=== PATIENT | female | born 2000 | race African-American/Black ===

== ENCOUNTER 2022-08-08 16:03 | Emergency (ER) | payer OTHER, SELFPAY ==
--- OUTSIDE RECORDS SUMMARY | 2022-08-08 16:07 | XMS REPORT | Continuity of Care Document ---
:2000 Author Organization [facility] t Address [address] [phone] Care Team Providers Name Role Phone PCP, PATIENT DOES NOT HAVE A Primary Care Physician Unavailchava Hoff RN, Isha Chapman Attending Clinician Unavailable CLARISSA WISEMAN Attending Clinician Unavailable Only, Ang Db Test Attending Clinician Unavailable Clarissa Miles Attending Clinician Doctor Unassigned, Merigold Attending Clinician Unavailable Giorgi Alvarez Attending Clinician Hero Hodges Jr Attending Clinician Payers Payer Name Policy Type Policy Number Effective Date Expiration Date S ource Problems Condition Condition Condition Status Onset Resolution Last Treating Co mments Source Name Details Category Date Date Treatment Clinician Date DEQUERVAIN Diagnosis Active 2019-04-16 Memoria S DEQUERVAIN 04-09 15:57:00 l RELAEASE, S 00:00: Chris LT WRIST RELAEASE, 00 LT WRIST Active 04/09/2019 [facility] Chris UNK UNK Diagnosis Active 2019-04-12 Mem oria Active 04-09 05:44:00 l 04/09/2019 00:00: Medardo Arroyo Chris ACL ACL Diagnosis Active 2016-112018-05-05 Mem oria Active 18:20:00 l 11/10/2017 08:00: Medardo irene [facility] 00 [facility] KNEE KNEE Diagnosis Active 2016-112017-11-10 Mem oria ARTHROSCOP ARTHROSCOP 01-02 06:10:00 l Y/ACL Y/ACL 00:00: Chris RECONSTRUC RECONSTRUC 00 TION/ C B TION/ C B Active 11/01/2017 [facility] Chris M25.562 - M25.562 - Diagnosis Active 2016-112017-11-12 Memoria PAIN IN PAIN IN 12-12 15:46:00 l LEFT KNEE LEFT KNEE 00:01: Herm montrell Active 00 10/12/2017 JULIUS Perez, JULIUS [place] [facility] LEG MRI LEG Diagnosis Active 2016-112017-10-12 Memoria Active 12-12 18:47:00 l 10/12/2017 00:00: Medardo n [place] [id number] Chris Rupture of Rupture Problem Active 2019-10-16 Memoria anterior of 23:44:45 l cruciate anterior Medardo n ligament cruciate (disorder) ligament (disorder) Active Problem 10/16/2019 Madeleine Foster De De Problem Active Common Quervain's Quervain's Sp andrade tenosynovi tenosynovi - [facility] tis, left tis, left [facility] Other Other Problem Active Common chronic chronic Spirit pain pain - [facility] Pain in Pain in Problem Active Common left wrist left wrist Sp andrade - [facility] Injury of Injury of Problem Active Com mon left left Spirit radial radial - [facility] nerve at nerve at [facility] level, level, Medical subsequent subsequent Ce nter encounter encounter Cough Cough Problem Active Common [facility] - [facility] Slow Slow Problem Active Common transit transit Spirit constipati constipati - [facility] on on [facility] Arachnoid Arachnoid Problem Resolve 2005-0 2019-10-16 2019-10-16 Memoria cyst cyst d 11-13 23:44:45 23:44:45 l (disorder) (disorder) 00:00: He rmann Resolved 00 11/13/2004 Problem 10/16/2019 Madeleine Foster Allergies, Adverse Reactions, Alerts Allergy Allergy Status Severity Reaction(s) Onset Inactive Treating Comm ents Source Name Type Date Date Clinician NO KNOWN Drug Active Univers ALLERGIE Class [facility] Social History Social Habit Start Date Stop Date Quantity Comments Source Exposure to Not sure [facility] SARS-CoV-2 [facility] (event) Branch Tobacco use and 2017-10-02 2017-10-02 Smokeless tobacco [facility] exposure 00:00:00 00:00:00 non-user Sex Assigned At [birth year] [facility] 00:00:00 00:00:00 Smoking Status Start Date Stop Date Source Unknown if ever smoked [facility] Social History [facility] Medications Ordered Filled Start Stop Current Ordering Indication Dosage Frequency Signature Comments Components Source Medication Medication Date Date Medication? Clinician (SIG) Name Name No known No Univers medications 1-10 ity of 20:37: [address] No known No Univers medications 1-10 ity of 20:37: [address] Zofran No Notes: Memoria 5-31 (Same as: l 13:55: Zofran) MEDICATION WASTE Product Size: 4 mg Product Wasted: ___ mg Acetaminoph No Notes: Do M emoria en 325 MG / 5-31 not exceed l Oxycodone 13:55: 4gm/day of He acetaminop de 5 MG hen. (Same Oral Tablet as: [Percocet Percocet-5 5/325] /325) Morphine No 2 mg, 1 Memori a 5-31 mL, Route: l 13:55: IVP, Drug form: SOLN, Q3H, Dosing Weight 93.182, kg, PRN Pain Score 1-3, Start date: 04/12/19 8:55:00 CDT, Duration: 30 day, Stop date: 05/12/19 8:54:00 CDT ondansetron No Route: IV, Memoria (ANES) 5-31 Drug form: l 13:44: INJ, ONCE, Stop date: 04/12/19 8:44:00 CDT dexamethaso No Route: IV, Memoria ne (ANES) 5-31 Drug form: l 13:44: INJ, ONCE, Stop date: 04/12/19 8:44:00 CDT ceFAZolin No Route: IV, Me moria (ANES) 5-31 Drug form: l 13:39: INJ, ONCE, Stop date: 04/12/19 8:39:00 CDT lidocaine 2018-0 No Route: IV, Me moria (ANES) 04-12 Drug form: l 13:39: INJ, ONCE, Stop date: 04/12/19 8:39:00 CDT propofol 2018-0 No Route: IV, Mem oria (ANES) 04-12 Drug form: l 13:39: INJ, ONCE, Chris 00 Stop date: 04/12/19 8:39:00 CDT Lactated No Route: IV, Mem oria Ringers - Total l Injection 12:47: Volume: Columba nn IV (ANES) 00 1,000, 1000 mL Start date: 04/12/19 7:47:00 CDT, Stop date: 04/12/19 8:47:00 CDT Calcium 2018-0 No 1,000 mL, Memor ia Chloride 04-12 Rate: 25 l 0.0014 10:57: ml/hr, Chris MEQ/ML / 00 Infuse Potassium over: 40 Chloride hr, Route: 0.004 IV, Dosing MEQ/ML / Weight Sodium 93.182 kg, Chloride Total 0.103 Volume: MEQ/ML / 1,000, Sodium Start Lactate date: 0.028 04/12/19 MEQ/ML 5:57:00 Injectable CDT, Solution Duration: 30 day, Stop date: 05/12/19 5:56:00 CDT, 2.15, m2 Sodium 2018-0 No 1,000 mL, Memori a Chloride 04-12 Rate: 25 l 0.9% IV 10:57: ml/hr, [place] 1,000 mL 00 Infuse over: 40 hr, Route: IV, Dosing Weight 93.182 kg, Total Volume: 1,000, Start date: 04/12/19 5:57:00 CDT, Duration: 30 day, Stop date: 05/12/19 5:56:00 CDT, 2.15, m2 Prozac 2019-0 Yes 20 mg, PO, Memor ia 5-29 Daily l 19:55: Chris Oxycodone 2017-1 No 5 mg, 1 Memor ia Hydrochlori 2-29 tab, l de 5 MG 18:26: Route: PO, Herm montrell Oral Tablet 00 ONCE, Dosing Weight 90, kg, Start date: 11/10/17 12:26:00 DOCTOR OF AUDIOLOGY, Stop date: 11/10/17 12:26:00 DOCTOR OF AUDIOLOGY ketOROLAC 2016-11 No IV, ONCE Vipin minnie (ANES) l 17:16: [place] 00 Albuterol 2016-11 No 2.49 mg, Vipin minnie 0.83 MG/ML Route: l Inhalant 17:05: NEB, Chris Solution 00 Q20Min, Dosing Weight 90, kg, PRN Wheezing, Priority: STAT, Start date: 11/10/17 11:05:00 DOCTOR OF AUDIOLOGY, Duration: 30 day, Stop date: 12/10/17 11:04:00 DOCTOR OF AUDIOLOGY Morphine 2016-11 No 4 mg, Memoria Route: l 17:05: IVP, Chris 00 Q5Min, Dosing Weight 90, kg, PRN Pain Score 7-10, Start date: 11/10/17 11:05:00 DOCTOR OF AUDIOLOGY, Duration: 3 doses or times, Stop date: Limited # of times Naloxone 2016-11 No 0.4 mg, Memori a Route: l 17:05: IVP, Chris 00 Q2MIN, Dosing Weight 90, kg, PRN Narcotic Reversal, Start date: 11/10/17 11:05:00 DOCTOR OF AUDIOLOGY, Duration: 8 doses or times, Stop date: Limited # of times Flumazenil 2016-11 No 0.2 mg, Vipin minnie Route: l 17:05: IVP, PRN, Chris 00 Dosing Weight 90, kg, PRN Benzodiaze pine Reversal, Initial dose, Start date: 11/10/17 11:05:00 DOCTOR OF AUDIOLOGY, Duration: 30 day, Stop date: 12/10/17 11:04:00 DOCTOR OF AUDIOLOGY Ondansetron 2016-11 No 4 mg, Memor ia Route: l 17:05: IVP, ONCE, Chris 00 Dosing Weight 90, kg, PRN Nausea & Vomiting, Start date: 11/10/17 11:05:00 DOCTOR OF AUDIOLOGY Fentanyl 2016-11 No 25 Memoria microgram, l 17:05: Route: Chris 00 IVP, Q5Min, Dosing Weight 90, kg, PRN Pain Score 4-6, Priority: Routine, Start date: 11/10/17 11:05:00 DOCTOR OF AUDIOLOGY, Duration: 4 doses or times, Stop date: Limited # of times Ketorolac 2016-11 Yes 30 mg, Memori a Route: l 17:05: IVP, ONCE, [place] Dosing Weight 90, kg, Start date: 11/10/17 11:05:00 DOCTOR OF AUDIOLOGY, Stop date: 11/10/17 11:05:00 DOCTOR OF AUDIOLOGY Labetalol 2016-11 No 10 mg, Memori a Route: l 17:05: IVP, [place] 00 Q5Min, Dosing Weight 90, kg, PRN Elevated BP, Start date: 11/10/17 11:05:00 DOCTOR OF AUDIOLOGY, Duration: 5 doses or times, Stop date: Limited # of times Hydralazine 2016-11 No 10 mg, Vipin minnie Route: l 17:05: IVP, [place] 00 Q20Min, Dosing Weight 90, kg, PRN Elevated BP, Start date: 11/10/17 11:05:00 DOCTOR OF AUDIOLOGY, Duration: 2 doses or times, Stop date: Limited # of times Tylenol 2016-11 No Notes: Do Memor ia not exceed l 16:53: 4 gm/day. (Same as: Tylenol) Roxicodone 2016-11 No Notes: Memor ia (Same as: l 16:53: Roxicodone ) Zofran 2016-11 No Notes: Memoria (Same as: l 16:32: Zofran) MEDICATION WASTE Product Size: 4 mg Product Wasted: ___ mg Acetaminoph 2016-11 No 2 tab, Vipin minnie en 325 MG / Route: PO, l Oxycodone 16:32: Drug Form: He rmann Hydrochlori 00 TAB, de 5 MG Dosing Oral Tablet Weight 90, [Percocet kg, Q4H, 5/325] PRN Pain, Start date: 11/10/17 10:32:00 DOCTOR OF AUDIOLOGY, Duration: 30 day, Stop date: 12/10/17 10:31:00 DOCTOR OF AUDIOLOGY Morphine 2016-11 No Notes: Memoria (Same l 16:32: as:MORPhin e Sulfate) diphenhydrA 2016-11 No Route: IV, Memoria MINE (ANES) 2-29 Drug form: l 16:23: INJ, ONCE, Stop date: 11/10/17 10:23:00 DOCTOR OF AUDIOLOGY hydromorpho 2016-11 No Route: IV, Memoria ne (ANES) Drug form: l 15:53: INJ, ONCE, Stop date: 11/10/17 9:53:00 DOCTOR OF AUDIOLOGY lidocaine 2016-11 No Route: IV, Me moria (ANES) Drug form: l 15:43: INJ, ONCE, Stop date: 11/10/17 9:43:00 DOCTOR OF AUDIOLOGY ceFAZolin 2016-11 No Route: IV, Me moria (ANES) Drug form: l 15:38: INJ, ONCE, Stop date: 11/10/17 9:38:00 DOCTOR OF AUDIOLOGY ondansetron 2016-11 No Route: IV, Memoria (ANES) Drug form: l 15:38: INJ, ONCE, Stop date: 11/10/17 9:38:00 DOCTOR OF AUDIOLOGY dexamethaso 2016-11 No Route: IV, Memoria ne (ANES) Drug form: l 15:38: INJ, ONCE, Stop date: 11/10/17 9:38:00 DOCTOR OF AUDIOLOGY fentaNYL 2016-11 No Route: IV, Mem oria (ANES) Drug form: l 15:38: INJ, ONCE, Stop date: 11/10/17 9:38:00 DOCTOR OF AUDIOLOGY propofol 2016-11 No Route: IV, Mem oria (ANES) Drug form: l 15:38: INJ, ONCE, Stop date: 11/10/17 9:38:00 DOCTOR OF AUDIOLOGY famotidine 2016-11 No Route: IV, M emoria (ANES) Drug form: l 15:38: INJ, ONCE, Stop date: 11/10/17 9:38:00 DOCTOR OF AUDIOLOGY metoclopram 2016-11 No Route: IV, Memoria hola (ANES) Drug form: l 15:38: INJ, ONCE, Stop date: 11/10/17 9:38:00 DOCTOR OF AUDIOLOGY midazolam 2016-11 No Route: IV, Me moria (ANES) 2 Drug form: l 15:33: Mumtaz TURNERann 00 ONCE, Stop date: 11/10/17 9:33:00 DOCTOR OF AUDIOLOGY Lactated 2016-11 No Route: IV, Mem oria Ringers Total l Injection 14:43: Volume: Columba nn IV (ANES) 00 1,000, 1000 mL Start date: 11/10/17 8:43:00 DOCTOR OF AUDIOLOGY, Stop date: 11/10/17 9:43:00 DOCTOR OF AUDIOLOGY Calcium 2016-11 No 1,000 mL, Memor ia Chloride Rate: 25 l 0.0014 13:01: ml/hr, Chris MEQ/ML / 00 Infuse Potassium over: 40 Chloride hr, Route: 0.004 IV, Dosing MEQ/ML / Weight 90 Sodium kg, Total Chloride Volume: 0.103 1,000, MEQ/ML / Start Sodium date: Lactate 11/10/17 0.028 7:01:00 MEQ/ML DOCTOR OF AUDIOLOGY, Injectable Duration: Solution 30 day, Stop date: 12/10/17 7:00:00 DOCTOR OF AUDIOLOGY, 2.1, m2 No known 2016-11 No No known Metho di medications 1-[address] 13:11: [facility] l Azithromyci Azithromyci Yes Ran 2 tablets Common n n [place] on the [facility] first day, [facility] 4 days Center Symbicort Symbicort Yes Ran INHALE 2 Common [place] PUFFS BY Spirit MOUTH - [facility] TWICE A [facility] DAY [facility] Cefdinir Cefdinir Yes Ran TAKE 1 Com mon [place] CAPSULE BY [facility] M[facility]TH [facility] EVERY [facility]RS [facility] ProAir HFA ProAir HFA Yes Ran INHALE 1 Common [place] TO 2 Spirit PUFF(S) BY - [facility]TH [facility] EVERY 4 TO [facility] 6 HR Medical [facility] Center EZING AND BEFORE SPORTS- [place] FOR SCHOOL Mucinex DM Mucinex DM Yes Ran 1 tablet Common [place] as needed [facility] - [facility] Vital Signs Vital Name Observation Time Observation Value Comments Source Systolic (mm Hg) 2019-04-12 14:30:00 Vipin Perez Diastolic (mm Hg) 2019-04-12 14:30:00 Mem kerwin Perez Respitory Rate 2019-04-12 14:30:00 Memori al Chris Systolic (mm Hg) 2019-04-12 14:15:00 Vipin rial [place] Diastolic (mm Hg) 2019-04-12 14:15:00 Mem orial Chris Respitory Rate 2019-04-12 14:15:00 Memori al [place] Respitory Rate 2019-04-12 14:00:00 Memori al [place] Systolic (mm Hg) 2019-04-12 14:00:00 Vipin rial [place] Diastolic (mm Hg) 2019-04-12 14:00:00 Mem orial Chris BMI Calculated 2019-04-10 20:08:00 Memori al Chris Weight 2019-04-10 20:08:00 Memorial Chris Height 2019-04-10 20:08:00 175.26 cm Memorial Chris Respitory Rate 2017-11-10 18:45:00 Memori al Chrsi Systolic (mm Hg) 2017-11-10 18:45:00 Vipin rial [place] Diastolic (mm Hg) 2017-11-10 18:45:00 Mem orial Chris Systolic (mm Hg) 2017-11-10 18:30:00 Vipin rial [place] Diastolic (mm Hg) 2017-11-10 18:30:00 Mem orial Chris Respitory Rate 2017-11-10 18:30:00 Memori al Chris Systolic (mm Hg) 2017-11-10 18:10:00 Vipin rial [place] Diastolic (mm Hg) 2017-11-10 18:10:00 Mem orial [place] Respitory Rate 2017-11-10 18:10:00 Memori al [place] Weight 2017-11-08 17:00:00 Memorial Chris BMI Calculated 2017-11-08 17:00:00 Memori al [place] Height 2017-11-08 17:00:00 172.72 cm Memorial Chris Procedures Procedure Date / Time Performed Performing Clinician Sour e Cerebral Arachnoid cyst 2004-11-13 00:00:00 Vipin rial [place] Reconstruction of anterior Memor ial [place] cruciate ligament of knee joint Plan of Care Planned Activity Planned Date Details Comments Source Future Scheduled 2022-07-15 HEPATITIS B VACCINES Met [facility] Test 14:47:35 (1 of 3 - 3-dose series) [code = HEPATITIS B VACCINES (1 of 3 - 3-dose series)] Future Scheduled 2022-07-15 COVID-19 VACCINE (#1) [facility] Test 14:47:35 [code = COVID-19 VACCINE (#1)] Future Scheduled 2022-07-15 [facility] Test 14:47:35 Chlamydia trachomatis (procedure) [code = 239256411] Future Scheduled 2022-07-15 INFLUENZA VACCINE [facility] Test 14:47:35 [code = INFLUENZA VACCINE] Encounters Start End Encounter Admission Attending Care Care Encounter Source Date/Time Date/Time Type Type Clinicians Facility Department ID 2021-11-24 2021-11-24 Letter DONOVAN Hoff [id number] Univers 00:00:00 00:00:00 (Out) Isha JERRY [id number] it y of HOSPITAL 4.2.7.2.686 Job as [id number] [facility] [address] [place] 2021-11-22 2021-11-22 Outpatient R [facility] [id number] Univers 20:30:00 20:53:09 CLARISSA winter o f [facility] 2021-11-22 2021-11-22 Laboratory Only, Ang Db Test [facility] 1.2.8 [id number] [id number] Univers 20:30:00 20:45:00 Only Clarissa Wiseman [facility] [id number] ity of [place] 4.2.7.2.686 Job as DEVAUGHN?BLEA [id number] [address]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 2021-11-22 2021-11-22 Letter Doctor DONOVAN [id number] Univers 00:00:00 00:00:00 (Out) Unassigned, CLARITZA [id number] ity of [place] [id number] Job as [id number] [address] 2021-11-22 2021-11-22 Letter Doctor DONOVAN [id number] Univers 00:00:00 00:00:00 (Out) Unassigned, CLARITZA [id number] ity of [facility] [id number] Job as [id number] [address] 2019-10-14 2019-10-15 Outpt Diag nullFlavo [facility] [id number] Memoria 14:51:00 05:59:00 Services r [facility] 02 [facility] 2019-10-14 2019-10-14 Outpatient Elayne MHOIP MHOIP [id number] 08:51:00 23:59:00 Haider Celeste 2019-04-12 2019-04-12 Day nullFlavo [facility] [id number] Memoria 10:44:00 14:47:00 Surgery r [place] 01 [facility] 2019-04-12 2019-04-12 Outpatient Carroll, MHPL MHPL [id number] 05:44:00 09:47:00 Hero Martinez 2019-04-12 2019-04-12 Outpatient MHBL MHBL [id number] MHBL 05:44:00 05:44:00 2018-10-22 2018-10-22 Outpatient [facility] [id number] Common 14:00:00 14:00:00 [facility] 2018 2018 Out[facility] [id number] Common 15:00:00 15:00:00 t [facility] 2017-11-10 2017-11-10 Day nullFlavo [facility] [id number] Memoria 12:03:00 19:00:00 Surgery r Chris 00 [facility] 2017-11-10 2017-11-10 Outpatient Carroll, MHPL MHPL [id number] 06:03:00 13:00:00 Hero Martinez 2017-10-13 2017-10-13 Outpatient nullFlavo [facility] [id number] Memoria 00:40:00 05:59:00 r Chris 34 [facility] 2017-10-12 2017-10-12 Outpatient Carroll, MHPL MHPL [id number] 18:40:00 23:59:00 Hero Martinez Results Test Description Test Time Test Comments Results Result Comments Source URINE CHEM 2019-04-12 10:58:00 Test Item Value Reference Range Interpretation Comme nts U Preg (test code = U Preg) Negative (04/12/19 5:58 AM) Dina Hodges [id number] 13:02:00 Test Item Value Reference Range Interpretation Comments U Preg (test code = U Negative (11/10/17 7:02 Preg) AM) Dina Perez
[2022-08-08 16:53] LABS: Absolute Lymphocytes (CBC) 3.2 K/uL (0.7-4.9); Hematocrit 35.6 % (36.0-45.0); Lymphocytes % 41.7 % (15.3-44.8); MCV 78.1 fL (80-100); MPV 7.8 fL (7.6-11.3); RBC Red Blood Cell Count 4.56 M/uL (3.86-4.86)
[2022-08-08 17:00] LABS: Potassium 3.4 mmol/L (3.5-5.1)
[2022-08-08 17:07] LABS: Troponin High Sensitivity 3.5 pg/mL (<58.9)
[2022-08-08] MEDS ORDERED: MIDAZOLAM HCL 2 MG/2 ML INJ ONE (17:08)
--- NOTE | 2022-08-08 17:19 | RAD REPORT ---
EXAM DESCRIPTION: RAD - Chest Single View - 08/08/2022 4:59 pm CLINICAL HISTORY: syncope COMPARISON: Two view chest June 2017 TECHNIQUE: AP portable chest image was obtained 08/08/2022 4:59 pm . FINDINGS: No acute lung parenchymal process. Remnant CARPET INSPECTOR shunt tubing overlies the right-side of the chest. Overlying chest soft tissues increase lower lung field density. Acute lung parenchymal process is not seen. No failure or volume overload Heart and vasculature are normal. No measurable pleural effusion and no pneumothorax. No acute bony abnormality seen. No acute aortic findings suspected. IMPRESSION: No acute cardiopulmonary process.
--- NOTE | 2022-08-08 17:43 | EDPHYS ---
Physician Documentation [facility] Name: Felicita Tolentino Age: 21 yrs Sex: Female : 2000 Arrival Date: 08/08/2022 Time: 16:04 Bed 17 Private MD: ED Physician Maik Norton HPI: 08/08 22:36 This 21 yrs old Black Female presents to ER via Ambulatory with complaints of near ms3 Fainting. 22:36 21 yo female with no pmh presents for anxiety, shaking, and lighheadedness that began ms3 earlier today. Patient states she has not eaten a meal today and has had an energy drink, chocolate candy bar, and fuit. Patient denies pain at this time. Patient understands/ agrees with plan. . 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 - Social history:: Smoking status: Patient denies any tobacco usage or history of. ROS: 22:36 ENT: Negative for injury, pain, and discharge, Neck: Negative for injury, pain, and ms3 swelling, Cardiovascular: Negative for chest pain, and palpitations. Respiratory: Negative for shortness of breath, cough, wheezing, and pleuritic chest pain, Abdomen/GI: Negative for abdominal pain, nausea, vomiting, diarrhea, and constipation, MS/Extremity: Negative for injury and deformity, Skin: Negative for injury, rash, and discoloration. 22:36 Constitutional: Positive for fatigue. 22:36 All other systems are negative. Exam: 16:37 ECG was reviewed by the Attending Physician. ms3 22:36 Constitutional: This is a well developed, well nourished patient who is awake, alert, ms3 and in no acute distress. Head/Face: Normocephalic, atraumatic. Eyes: Pupils equal round and reactive to light, extra-ocular motions intact. Lids and lashes normal. Conjunctiva and sclera are non-icteric and not injected. Periorbital areas with no swelling, redness, or edema. Neck: Trachea midline, no cervical lymphadenopathy. Supple, full range of motion without nuchal rigidity, or vertebral point tenderness. No Meningismus. Chest/axilla: Normal chest wall appearance and motion. Nontender with no deformity. Cardiovascular: Regular rate and rhythm with a normal S1 and S2. No gallops, murmurs, or rubs. Normal PMI, no JVD. No pulse deficits. Respiratory: Lungs have equal breath sounds bilaterally, clear to auscultation and percussion. No rales, rhonchi or wheezes noted. No increased work of breathing, no retractions or nasal flaring. Abdomen/GI: Soft, non-tender, with normal bowel sounds. No distension or tympany. No guarding or rebound. No evidence of tenderness throughout. Skin: Warm, dry with normal turgor. Normal color with no rashes, no lesions, and no evidence of cellulitis. MS/ Extremity: Pulses equal, no cyanosis. Neurovascular intact. Full, normal range of motion. Vital Signs: 16:10 BP 147 / 71; Pulse 80; Resp 18; Temp 98.4; Pulse Ox 100% ; Weight 122.47 kg; Height 5 jl7 ft. 9 in. (175.26 cm); Pain 0/10; 17:54 BP 127 / 80; Pulse 85; Resp 16; Pulse Ox 100% on R/A; tp1 16:10 Body Mass Index 39.87 (122.47 kg, 175.26 cm) jl7 MDM: 16:44 Patient medically screened. ms3 22:36 Data reviewed: vital signs, nurses notes, lab test result(s), radiologic studies. ms3 Counseling: I had a detailed discussion with the patient and/or guardian regarding: the historical points, exam findings, and any diagnostic results supporting the discharge/admit diagnosis, lab results, radiology results, the need for outpatient follow up, to return to the emergency department if symptoms worsen or persist or if there are any questions or concerns that arise at home. Special discussion: I discussed with the patient/guardian in detail that at this point there is no indication for admission to the hospital. It is understood, however, that if the symptoms persist or worsen the patient needs to return immediately for re-evaluation. 08/08 16:17 Order name: Basic Metabolic Panel; Complete Time: 17:25 ms3 08/08 16:17 Order name: CBC with Diff; Complete Time: 17:25 ms3 08/08 16:17 Order name: Troponin HS; Complete Time: 17:25 ms3 08/08 16:17 Order name: XRAY Chest (1 view); Complete Time: 17:25 ms3 08/08 16:17 Order name: EKG; Complete Time: 16:18 ms3 08/08 16:17 Order name: Cardiac monitoring; Complete Time: 17:40 ms3 08/08 16:17 Order name: EKG - Nurse/Tech; Complete Time: 17:40 ms3 08/08 16:17 Order name: IV Saline Lock; Complete Time: 17:40 ms3 08/08 16:17 Order name: Labs collected and sent; Complete Time: 17:40 ms3 08/08 16:17 Order name: O2 Per Protocol; Complete Time: 16:20 ms3 08/08 16:17 Order name: O2 Sat Monitoring; Complete Time: 16:20 ms3 EC:37 Rate is 79 beats/min. Rhythm is regular. QRS [place] is Normal. [place] interval is normal. QRS ms3 interval is normal. Clinical impression: Normal ECG. Interpreted by me. Reviewed by me. Administered Medications: 17:16 Drug: Midazolam 1 mg Route: IVP; Site: right antecubital; db 18:00 Follow up: Response: Marked relief of symptoms tp1 Disposition Summary: 08/08/22 17:42 Discharge Ordered Location: Home ms3 Condition: Stable ms3 Diagnosis - Syncope Near ms3 - Anemia, unspecified ms3 - Hypokalemia ms3 Followup: ms3 - With: Peewee Yang DO - When: 2 - 3 days - Reason: Recheck today's complaints Discharge Instructions: - Discharge Summary Sheet ms3 - Anemia ms3 - Near-Syncope ms3 - Hypokalemia ms3 Forms: - Medication Reconciliation Form ms3 - Thank You Letter ms3 - Antibiotic Education ms3 - Prescription Opioid Use ms3 Signatures: Dispatcher [employer] Chelsy Silverman RN RN Xavi Garcia RN RN jl7 Maik Norton DO DO ms3 Keren Murray RN RN Corrie Blankenship RN tp1 Corrections: (The following items were deleted from the chart) 17:22 17:16 PMHx: AV shunt; db ph
--- NOTE | 2022-08-08 17:43 | ER ---
Nurse's Notes [facility] Name: Felicita Tolentino Age: 21 yrs Sex: Female : 2000 Arrival Date: 08/08/2022 Time: 16:04 Bed 17 Private MD: Diagnosis: Syncope Near;Anemia, unspecified;Hypokalemia Presentation: 08/08 16:10 Chief complaint: Patient states: Ate fruit at breakfast, drank a couple energy drinks, jl7 had some chocolate and passed out at work, reports feeling jittery. Coronavirus screen: Vaccine status: Patient reports receiving the 2nd dose of the covid vaccine. At this time, the client does not indicate any symptoms associated with coronavirus-19. Ebola Screen: No symptoms or risks identified at this time. Initial Sepsis Screen: Does the patient meet any 2 criteria? No. Patient's initial sepsis screen is negative. Does the patient have a suspected source of infection? No. Patient's initial sepsis screen is negative. Risk Assessment: Do you want to hurt yourself or someone else? Patient reports no desire to harm self or others. Onset of symptoms was August 08, 2022. 16:10 Method Of Arrival: Ambulatory jl7 16:10 Acuity: YASMINE 3 jl7 Triage Assessment: 16:12 General: Appears in no apparent distress. uncomfortable, Behavior is cooperative, jl7 appropriate for age, anxious. Pain: Denies pain. 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 - Social history:: Smoking status: Patient denies any tobacco usage or history of. Screenin:16 Abuse screen: Denies threats or abuse. Denies injuries from another. Nutritional tp1 screening: No deficits noted. Tuberculosis screening: No symptoms or risk factors identified. 17:59 Fall Risk No fall in past 12 months (0 pts). No secondary diagnosis (0 pts). IV access tp1 (20 points). Ambulatory Aid- None/Bed Rest/Nurse Assist (0 pts). Gait- Normal/Bed Rest/Wheelchair (0 pts) Mental Status- Oriented to own ability (0 pts). Assessment: 16:12 General: Appears in no apparent distress. comfortable, Behavior is calm, cooperative. tp1 General: slight hand tremors noted . Pain: Denies pain. Neuro: Level of Consciousness is awake, alert, obeys commands, Oriented to person, place, time, situation, Pupils are PERRLA, Reports "light is really bright". Cardiovascular: Reports lightheadedness, syncope, Denies chest pain, nausea, shortness of breath, Patient's skin is warm and dry. Respiratory: Airway is patent Respiratory effort is even, unlabored. GI: Abdomen is round non-distended. : No signs and/or symptoms were reported regarding the genitourinary system. EENT: No signs and/or symptoms were reported regarding the EENT system. Derm: Skin is pink, warm \\T\\ dry. Musculoskeletal: Circulation, motion, and sensation intact. 16:24 Reassessment: pt complaining of facial numbness and lightheaded, provider notified. tp1 16:42 Reassessment: appears to be anxious and crying. advised to take slow deep breaths. tp1 sister at bedside. Vital Signs: 16:10 BP 147 / 71; Pulse 80; Resp 18; Temp 98.4; Pulse Ox 100% ; Weight 122.47 kg; Height 5 jl7 ft. 9 in. (175.26 cm); Pain 0/10; 17:54 BP 127 / 80; Pulse 85; Resp 16; Pulse Ox 100% on R/A; tp1 16:10 Body Mass Index 39.87 (122.47 kg, 175.26 cm) jl7 ED Course: 16:04 Patient arrived in ED. rg4 16:08 Corrie Waller, RN is Primary Nurse. tp1 16:12 Triage completed. jl7 16:12 Arm band placed on right wrist. jl7 16:16 Maik Norton DO is Attending Physician. ms3 16:17 Patient has correct armband on for positive identification. Bed in low position. Call tp1 light in reach. Side rails up X2. Adult w/ patient. 16:28 Inserted saline lock: 20 gauge in right antecubital area, using aseptic technique. tp1 Blood collected. 16:37 EKG done, by ED staff. tp1 17:01 XRAY Chest (1 view) In Process Unspecified. EDMS 17:42 Peewee Yang DO is Referral Physician. ms3 17:59 No provider procedures requiring assistance completed. intact, bleeding controlled, No tp1 redness/swelling at site. Pressure dressing applied. Administered Medications: 17:16 Drug: Midazolam 1 mg Route: IVP; Site: right antecubital; db 18:00 Follow up: Response: Marked relief of symptoms tp1 Medication: 17:59 VIS not applicable for this client. tp1 Outcome: 17:42 Discharge ordered by MD. ms3 18:00 Discharged to home ambulatory. tp1 18:00 Condition: good 18:00 Discharge instructions given to patient, Instructed on discharge instructions, follow up and referral plans. Demonstrated understanding of instructions, follow-up care. 18:00 Patient left the ED. tp1 Signatures: Dispatcher [employer] EDMS Chelsy Leonardo RN RN Shalini Guzmán rg4 Xavi Núñez RN RN jl7 Maik Norton DO DO ms3 Corrie Waller, RN RN tp1 Keren Murray, ALEC RN db Corrections: (The following items were deleted from the chart) 17:22 17:16 PMHx: AV shunt; db ph
--- NOTE | 2022-08-09 17:28 | EKG ---
Test Date: 2022-08-08 Test Time: 16:37:32 Supervisor [employer]: TP MEASUREMENT RESULTS: Intervals: Rate: 79 MD: 158 QRSD: 86 QT: 374 QTc: 428 Elrod: P: 61 MD: 158 QRS: 64 T: 36 INTERPRETIVE STATEMENTS: Normal sinus rhythm Normal ECG Compared to ECG 07/11/2017 15:02:39 No significant changes Electronically Signed On 08-09-22 17:26:26 CDT by Perry Mejia
[2022-08-11 06:45] VITALS: BP 127/80; O2SAT 100
[2022-08-11 06:54] VITALS: TEMP 98.4
== END 2022-08-08 18:00 | disposition home or self-care (01) ==
LOC: ER 16:03
DX: R55 Syncope and collapse (principal); D64.9 Anemia, unspecified; E87.6 Hypokalemia; Z98.2 Presence of cerebrospinal fluid drainage device
CPT/HCPCS: 36415; 71045; 80048; 84484; 85025; 93005; 96374; 99284; J2250

== ENCOUNTER 2022-10-30 14:54 | Emergency (ER) | payer OTHER ==
--- OUTSIDE RECORDS SUMMARY | 2022-10-30 14:57 | XMS REPORT | Continuity of Care Document ---
:2000 Author Organization [facility] t Address [address] [place] [address] Care Team Providers Name Role Phone Evaristo ROBLES, Ila Lujan Primary Care Physician CECY PALMER Attending Clinician Unavailable Spencer HOLMAN, Cecy Attending Clinician Unknown, Attending Attending Clinician Unavailable Isha Hoff RN Attending Clinician Unavailable CLARISSA WISEMAN Attending Clinician Unavailable Only, Ang Db Test Attending Clinician Unavailable Clarissa Miles Attending Clinician Doctor Unassigned, [place] Attending Clinician Unavailable Giorgi Alvarez Attending Clinician Hero Hodges Jr Attending Clinician Payers Payer Name Policy Type Policy Number Effective Date Expiration Date S ource HIM AMBETTER FROM [id number] 2021 FORMERLY NAMED [facility] 00:00:00 Problems Condition Condition Condition Status Onset Resolution Last Treating Co mments Source Name Details Category Date Date Treatment Clinician Date UNK UNK Diagnosis Active 2019-04-12 Mem oria Active 04-09 05:44:00 l 04/09/2019 00:00: Medardo Arroyo Chirs DEQUERVAIN DEQUERVAI Diagnosis Active 2019-04-16 Kash RODRIGES 04-09 15:57:00 l RELAEASE, RELAEASE, 00:00: Mumtaz stock LT WRIST LT WRIST 00 Active 04/09/2019 [facility] Chris ACL ACL Diagnosis Active 2016-112018-05-05 Mem oria Active 18:20:00 l 11/10/2017 08:00: Medardo irene [facility] 00 [facility] KNEE KNEE Diagnosis Active 2016-112017-11-10 Mem oria ARTHROSCOP ARTHROSCOP 01-02 06:10:00 l Y/ACL Y/ACL 00:00: Chris RECONSTRUC RECONSTRUC 00 TION/ C B TION/ C B Active 11/01/2017 [facility] Chris M25.562 - M25.562 Diagnosis Active 2016-112017-11-12 Memoria PAIN IN - PAIN IN 12-12 15:46:00 l LEFT KNEE LEFT KNEE 00:01: Herm montrell Active 00 10/12/2017 OLGA LIDIA Perez, JULIUS [facility] LEG MRI LEG Diagnosis Active 2016-112017-10-12 Memoria Active 12-12 18:47:00 l 10/12/2017 00:00: Medardo irene [place] [id number] Chris No known No known Disease Unive rs active active ity of problems problems [facility] Rupture of Rupture Problem Active 2019-10-16 Memoria anterior of 23:44:45 l cruciate anterior Medardo irene ligament cruciate (disorder) ligament (disorder) Active Problem 10/16/2019 Madeleine Foster Problem Active Common Quervain's Quervain's Sp andrade tenosynovi tenosynovi - [facility] tis, left tis, left [facility] Other Other Problem Active Common chronic chronic Spirit pain pain - [facility] Pain in Pain in Problem Active Common left wrist left wrist Sp andrade - [facility] Injury of Injury of Problem Active Com mon left left Spirit radial radial - [facility] nerve at nerve at [facility] level, level, Medical subsequent subsequent Ce nter encounter encounter Cough Cough Problem Active Common Spirit - [facility] Slow Slow Problem Active Common transit transit Spirit constipati constipati - [facility] on on [facility] Arachnoid Arachnoid Problem Resolve 2004-0 2019-10-16 2019-10-16 Memoria cyst cyst d 11-13 23:44:45 23:44:45 l (disorder) (disorder) 00:00: He rmann Resolved 00 11/13/2004 Problem 10/16/2019 Madeleine Foster Allergies, Adverse Reactions, Alerts Allergy Allergy Status Severity Reaction(s) Onset Inactive Treating Comm ents Source Name Type Date Date Clinician NO KNOWN Drug Active Univers ALLERGIE Class ity of S [facility] Social History Social Habit Start Date Stop Date Quantity Comments Source Exposure to 2022-10-15 2022-10-25 Not sure [facility] SARS-CoV-2 00:00:00 09:42:00 [facility] (event) Branch Tobacco use and 2022-10-25 2022-10-25 Smokeless tobacco Un iversity of exposure 00:00:00 00:00:00 non-user [facility] Sex Assigned At [birth year] [facility] 00:00:00 00:00:00 Smoking Status Start Date Stop Date Source Unknown if ever smoked Universit y of [facility] Social History [facility] Medications Ordered Filled Start Stop Current Ordering Indication Dosage Frequency Signature Comments Components Source Medication Medication Date Date Medication? Clinician (SIG) Name Name benzonatate 2021-11 Yes [id number] 200mg Take 2 Univers 100 mg 2-13 capsules ity of capsule 00:00: by mouth [place] 00 every 8 Medical (eight) Branch hours as needed for Cough. bromphenira 2021-11 Yes [id number] 10mL Take 10 mL Univers mine-pseudo 2-13 by mouth 4 it y of ephedrine-D 00:00: (four) [place] s M (BROMFED 00 times Medical DM) 2-30-10 daily as Bran ch mg/5 mL needed for syrup Congestion /Allergies . amoxicillin 2021-11- Yes [id number] 1{tbl} Take 1 Univers -clavulanat 2-13 12-21 tablet by it y of e 00:00: 05:59 mouth in [place] (AUGMENTIN) 00 :00 the Medical 875-125 mg morning Branch per tablet and 1 tablet in the evening. Do all this for 7 days. No known No Univers medications 1-10 ity of 20:37: [address] No known No Univers medications 1-10 ity of 20:37: [address] Zofran No Notes: Memoria 04-12 (Same as: l 13:55: Zofran) [place] 00 MEDICATION WASTE Product Size: 4 mg Product Wasted: ___ mg Acetaminoph 2018- No Notes: Do M emoria en 325 MG / 5-31 not exceed l Oxycodone 13:55: 4gm/day of He rmann Hydrochlori 00 acetaminop de 5 MG hen. (Same Oral Tablet as: [Percocet Percocet-5 5/325] /325) Morphine 2019-0 No 2 mg, 1 Memori a 5-31 mL, Route: l 13:55: IVP, Drug form: SOLN, Q3H, Dosing Weight 93.182, kg, PRN Pain Score 1-3, Start date: 04/12/19 8:55:00 CDT, Duration: 30 day, Stop date: 05/12/19 8:54:00 CDT Zofran No Notes: Memoria 5-31 (Same as: l 13:55: Zofran) MEDICATION WASTE Product Size: 4 mg Product Wasted: ___ mg Acetaminoph No Notes: Do M emoria en 325 MG / 5-31 not exceed l Oxycodone 13:55: 4gm/day of He rmann Hydrochlori 00 acetaminop de 5 MG hen. (Same Oral Tablet as: [Percocet Percocet-5 5/325] /325) Morphine 2019-0 No 2 mg, 1 Memori a 5-31 [...] INJ, ONCE, Stop date: 04/12/19 8:44:00 CDT ondansetron No Route: IV, Memoria (ANES) 5-31 Drug form: l 13:44: INJ, ONCE, Stop date: 04/12/19 8:44:00 CDT dexamethaso 2018-0 No Route: IV, Memoria ne (ANES) 5- Drug form: l 13:44: INJ, ONCE, Stop date: 04/12/19 8:44:00 CDT ceFAZolin 2019-0 No Route: IV, Me moria (ANES) 5-31 Drug form: l 13:39: INJ, ONCE, Stop date: 04/12/19 8:39:00 CDT lidocaine 2019-0 No Route: IV, Me moria (ANES) 5-31 Drug form: l 13:39: INJ, ONCE, Stop date: 04/12/19 8:39:00 CDT propofol 2019-0 No Route: IV, Mem oria (ANES) 5- Drug form: l 13:39: INJ, ONCE, Stop date: 04/12/19 8:39:00 CDT ceFAZolin 2018-0 No Route: IV, Me moria (ANES) 5-31 Drug form: l 13:39: INJ, ONCE, Stop date: 04/12/19 8:39:00 CDT lidocaine 2019-0 No Route: IV, Me moria (ANES) 5-31 Drug form: l 13:39: INJ, ONCE, Stop date: 04/12/19 8:39:00 CDT propofol 2019-0 No Route: IV, Mem oria (ANES) 5-31 Drug form: l 13:39: INJ, ONCE, Stop date: 04/12/19 8:39:00 CDT Lactated 2018-0 No Route: IV, Mem oria Ringers 5-31 Total l Injection 12:47: Volume: Columba nn IV (ANES) 00 1,000, 1000 mL Start date: 04/12/19 7:47:00 CDT, Stop date: 04/12/19 8:47:00 CDT Lactated 2018-0 No Route: IV, Mem oria Ringers 5-31 Total l Injection 12:47: Volume: Columba nn IV (ANES) 00 1,000, 1000 mL Start date: 04/12/19 7:47:00 CDT, Stop date: 04/12/19 8:47:00 CDT Calcium 2019-0 No 1,000 mL, Memor ia Chloride 5-31 Rate: 25 l 0.0014 10:57: ml/hr, Chris MEQ/ML / 00 Infuse Potassium over: 40 Chloride hr, Route: 0.004 IV, Dosing MEQ/ML / Weight Sodium 93.182 kg, Chloride Total 0.103 Volume: MEQ/ML / 1,000, Sodium Start Lactate date: 0.028 04/12/19 MEQ/ML 5:57:00 Injectable CDT, Solution Duration: 30 day, Stop date: 05/12/19 5:56:00 CDT, 2.15, m2 Sodium 2019-0 No 1,000 mL, Memori a Chloride 5-31 Rate: 25 l 0.9% IV 10:57: ml/hr, [place] 1,000 mL 00 Infuse over: 40 hr, Route: IV, Dosing Weight 93.182 kg, Total Volume: 1,000, Start date: 04/12/19 5:57:00 CDT, Duration: 30 day, Stop date: 05/12/19 5:56:00 CDT, 2.15, m2 Calcium 2019-0 No 1,000 mL, Memor ia Chloride 5-31 Rate: 25 l 0.0014 10:57: ml/hr, [place] MEQ/ML / 00 Infuse Potassium over: 40 Chloride hr, Route: 0.004 IV, Dosing MEQ/ML / Weight Sodium 93.182 kg, Chloride Total 0.103 Volume: MEQ/ML / 1,000, Sodium Start Lactate date: 0.028 04/12/19 MEQ/ML 5:57:00 Injectable CDT, Solution Duration: 30 day, Stop date: 05/12/19 5:56:00 CDT, 2.15, m2 Sodium 2019-0 No 1,000 mL, Memori a Chloride 5-31 Rate: 25 l 0.9% IV 10:57: ml/hr, Chris 1,000 mL 00 Infuse over: 40 hr, Route: IV, Dosing Weight 93.182 kg, Total Volume: 1,000, Start date: 04/12/19 5:57:00 CDT, Duration: 30 day, Stop date: 05/12/19 5:56:00 CDT, 2.15, m2 Prozac 2019-0 Yes 20 mg, PO, Memor ia 5-29 Daily l 19:55: Chris Prozac 2019-0 Yes 20 mg, PO, Memor ia 5-29 Daily l 19:55: Chris Oxycodone 2016-11 No 5 mg, 1 Memor ia Hydrochlori 2-29 tab, l de 5 MG 18:26: Route: PO, Herm montrell Oral Tablet 00 ONCE, Dosing Weight 90, kg, Start date: 11/10/17 12:26:00 KAIAWHINA KURA [facility] MAORI, Stop date: 11/10/17 12:26:00 KAIAWHINA KURA [facility] MAORI Oxycodone 2016-11 No 5 mg, 1 Memor ia Hydrochlori 2-29 tab, l de 5 MG 18:26: Route: PO, Herm montrell Oral Tablet 00 ONCE, Dosing Weight 90, kg, Start date: 11/10/17 12:26:00 KAIAWHINA KURA [place] MAORI, Stop date: 11/10/17 12:26:00 KAIAWHINA KURA [facility] MAORI ketOROLAC 2016-11 No IV, ONCE Vipin minnie (ANES) - l 17:16: Chris 00 ketOROLAC 2016-11 No IV, ONCE Vipin minnie (ANES) -29 l 17:16: Chris 00 Albuterol 2016-11 No 2.49 mg, Vipin minnie 0.83 MG/ML Route: l Inhalant 17:05: NEB, [place] Solution 00 Q20Min, Dosing Weight 90, kg, PRN Wheezing, Priority: STAT, Start date: 11/10/17 11:05:00 KAIAWHINA KURA [place] MAORI, Duration: 30 day, Stop date: 12/10/17 11:04:00 KAIAWHINA KURA [facility] MAORI Morphine 2016-11 No 4 mg, Memoria Route: l 17:05: IVP, Chris 00 Q5Min, Dosing Weight 90, kg, PRN Pain Score 7-10, Start date: 11/10/17 11:05:00 KAIAWHINA KURA [place] MAORI, Duration: 3 doses or times, Stop date: Limited # of times Naloxone 2016-11 No 0.4 mg, Memori a Route: l 17:05: IVP, Chris 00 Q2MIN, Dosing Weight 90, kg, PRN Narcotic Reversal, Start date: 11/10/17 11:05:00 KAIAWHINA KURA [place] MAORI, Duration: 8 doses or times, Stop date: Limited # of times Flumazenil 2016-11 No 0.2 mg, Vipin minnie Route: l 17:05: IVP, PRN, Chris Dosing Weight 90, kg, PRN Benzodiaze pine Reversal, Initial dose, Start date: 11/10/17 11:05:00 KAIAWHINA KURA [place] MAORI, Duration: 30 day, Stop date: 12/10/17 11:04:00 KAIAWHINA KURA [facility] MAORI Ondansetron 2016-11 No 4 mg, Memor ia Route: l 17:05: IVP, ONCE, [place] 00 Dosing Weight 90, kg, PRN Nausea & Vomiting, Start date: 11/10/17 11:05:00 KAIAWHINA KURA [facility]UP[place] MAORI Fentanyl 2016-11 No 25 Memoria microgram, l 17:05: Route: [place] 00 IVP, Q5Min, Dosing Weight 90, kg, PRN Pain Score 4-6, Priority: Routine, Start date: 11/10/17 11:05:00 KAIAWHINA KURA [place]UP[place] MAORI, Duration: 4 doses or times, Stop date: Limited # of times Ketorolac 2016-11 Yes 30 mg, Memori a Route: l 17:05: IVP, ONCE, Dosing Weight 90, kg, Start date: 11/10/17 11:05:00 KAIAWHINA KURA [place] MAORI, Stop date: 11/10/17 11:05:00 KAIAWHINA KURA [facility] MAORI Labetalol 2016-11 No 10 mg, Memori a Route: l 17:05: IVP, Chris 00 Q5Min, Dosing Weight 90, kg, PRN Elevated BP, Start date: 11/10/17 11:05:00 KAIAWHINA KURA [facility] MAORI, Duration: 5 doses or times, Stop date: Limited # of times Hydralazine 2016-11 No 10 mg, Vipin minnie Route: l 17:05: IVP, [place] 00 Q20Min, Dosing Weight 90, kg, PRN Elevated BP, Start date: 11/10/17 11:05:00 KAIAWHINA KURA [facility] MAORI, Duration: 2 doses or times, Stop date: Limited # of times Albuterol 2016-11 No 2.49 mg, Vipin minnie 0.83 MG/ML Route: l Inhalant 17:05: NEB, [place] Solution 00 Q20Min, Dosing Weight 90, kg, PRN Wheezing, Priority: STAT, Start date: 11/10/17 11:05:00 KAIAWHINA KURA [facility] MAORI, Duration: 30 day, Stop date: 12/10/17 11:04:00 KAIAWHINA KURA [facility] MAORI Morphine 2016-11 No 4 mg, Memoria 2-29 Route: l 17:05: IVP, [place] 00 Q5Min, Dosing Weight 90, kg, PRN Pain Score 7-10, Start date: 11/10/17 11:05:00 KAIAWHINA KURA [facility]UP[place] MAORI, Duration: 3 doses or times, Stop date: Limited # of times Naloxone 2016-11 No 0.4 mg, Memori a 2- Route: l 17:05: IVP, Chris 00 Q2MIN, Dosing Weight 90, kg, PRN Narcotic Reversal, Start date: 11/10/17 11:05:00 KAIAWHINA KURA [place]UP[place] MAORI, Duration: 8 doses or times, Stop date: Limited # of times Flumazenil 2016-11 No 0.2 mg, Vipin minnie 2 Route: l 17:05: IVP, PRN, Chris 00 Dosing Weight 90, kg, PRN Benzodiaze pine Reversal, Initial dose, Start date: 11/10/17 11:05:00 KAIAWHINA KURA [facility] MAORI, Duration: 30 day, Stop date: 12/10/17 11:04:00 KAIAWHINA KURA [facility] MAORI Ondansetron 2016-11 No 4 mg, Memor ia 2 Route: l 17:05: IVP, ONCE, Chris 00 Dosing Weight 90, kg, PRN Nausea & Vomiting, Start date: 11/10/17 11:05:00 KAIAWHINA KURA [facility]UP[facility] MAORI Fentanyl 2016-11 No 25 Memoria 2-29 microgram, l 17:05: Route: [place] 00 IVP, Q5Min, Dosing Weight 90, kg, PRN Pain Score 4-6, Priority: Routine, Start date: 11/10/17 11:05:00 KAIAWHINA KURA [facility]UP[place] MAORI, Duration: 4 doses or times, Stop date: Limited # of times Ketorolac 2016-11 Yes 30 mg, Memori a 2- Route: l 17:05: IVP, ONCE, [place] 00 Dosing Weight 90, kg, Start date: 11/10/17 11:05:00 KAIAWHINA KURA [place]UP[place] MAORI, Stop date: 11/10/17 11:05:00 KAIAWHINA KURA [facility]UP[place] MAORI Labetalol 2016-11 No 10 mg, Memori a 2- Route: l 17:05: IVP, [place] 00 Q5Min, Dosing Weight 90, kg, PRN Elevated BP, Start date: 11/10/17 11:05:00 KAIAWHINA KURA [facility]AUP[place] MAORI, Duration: 5 doses or times, Stop date: Limited # of times Hydralazine 2016-11 No 10 mg, Vipin minnie 2-29 Route: l 17:05: IVP, [place] 00 Q20Min, Dosing Weight 90, kg, PRN Elevated BP, Start date: 11/10/17 11:05:00 KAIAWHINA KURA [facility]UP[place] MAORI, Duration: 2 doses or times, Stop date: Limited # of times Tylenol 2016-11 No Notes: Do Memor ia 2-29 not exceed l 16:53: 4 gm/day. [place] 00 (Same as: Tylenol) Roxicodone 2016-11 No Notes: Memor ia 2-29 (Same as: l 16:53: Roxicodone [place] 00 ) Tylenol 2016-11 No Notes: Do Memor ia 2-29 not exceed l 16:53: 4 gm/day. [place] 00 (Same as: Tylenol) Roxicodone 2016-11 No Notes: Memor ia 2-29 (Same as: l 16:53: Roxicodone ) Zofran 2016-11 No Notes: Memoria 2-29 (Same as: l 16:32: Zofran) Chris MEDICATION WASTE Product Size: 4 mg Product Wasted: ___ mg Acetaminoph 2016-11 No 2 tab, Vipin minnie en 325 MG / Route: PO, l Oxycodone 16:32: Drug Form: Wili Driver 00 TAB, de 5 MG Dosing Oral Tablet Weight 90, [Percocet kg, Q4H, 5/325] PRN Pain, Start date: 11/10/17 10:32:00 KAIAWHINA KURA [facility]UP[facility] MAORI, Duration: 30 day, Stop date: 12/10/17 10:31:00 KAIAWHINA KURA [facility] MAORI Morphine 2016-11 No Notes: Memoria 2-29 (Same l 16:32: as:MORPhin Chris 00 e Sulfate) Zofran 2016-11 No Notes: Memoria 2-29 (Same as: l 16:32: Zofran) Chris 00 MEDICATION WASTE Product Size: 4 mg Product Wasted: ___ mg Acetaminoph 2016-11 No 2 tab, Vipin minnie en 325 MG / Route: PO, l Oxycodone 16:32: Drug Form: Wili john Hydrochlori 00 TAB, de 5 MG Dosing Oral Tablet Weight 90, [Percocet kg, Q4H, 5/325] PRN Pain, Start date: 11/10/17 10:32:00 KAIAWHINA KURA [place]UP[place] MAORI, Duration: 30 day, Stop date: 12/10/17 10:31:00 KAIAWHINA KURA [facility] MAORI Morphine 2016-11 No Notes: Memoria - (Same l 16:32: as:MORPhin Chris 00 e Sulfate) diphenhydrA 2016-11 No Route: IV, Memoria MINE (ANES) Drug form: l 16:23: INJ, ONCE, Stop date: 11/10/17 10:23:00 KAIAWHINA KURA [facility] MAORI diphenhydrA 2016-11 No Route: IV, Memoria MINE (ANES) Drug form: l 16:23: INJ, ONCE, Stop date: 11/10/17 10:23:00 KAIAWHINA KURA [facility] MAORI hydromorpho 2016-11 No Route: IV, Memoria ne (ANES) Drug form: l 15:53: INJ, ONCE, Stop date: 11/10/17 9:53:00 KAIAWHINA KURA [facility] MAORI hydromorpho 2016-11 No Route: IV, Memoria ne (ANES) Drug form: l 15:53: INJ, ONCE, Stop date: 11/10/17 9:53:00 KAIAWHINA KURA [facility] MAORI lidocaine 2016-11 No Route: IV, Me moria (ANES) Drug form: l 15:43: INJ, ONCE, Stop date: 11/10/17 9:43:00 KAIAWHINA KURA [facility] MAORI lidocaine 2016-11 No Route: IV, Me moria (ANES) 2- Drug form: l 15:43: INJ, ONCE, Stop date: 11/10/17 9:43:00 KAIAWHINA KURA [facility] MAORI ceFAZolin 2016-11 No Route: IV, Me moria (ANES) Drug form: l 15:38: INJ, ONCE, Stop date: 11/10/17 9:38:00 KAIAWHINA KURA [facility] MAORI ondansetron 2016-11 No Route: IV, Memoria (ANES) 2- Drug form: l 15:38: INJ, ONCE, Stop date: 11/10/17 9:38:00 KAIAWHINA KURA [facility] MAORI dexamethaso 2016-11 No Route: IV, Memoria ne (ANES) - Drug form: l 15:38: INJ, ONCE, Stop date: 11/10/17 9:38:00 KAIAWHINA KURA [facility] MAORI fentaNYL 2016-11 No Route: IV, Mem oria (ANES) Drug form: l 15:38: INJ, ONCE, Stop date: 11/10/17 9:38:00 KAIAWHINA KURA [facility] MAORI propofol 2016-11 No Route: IV, Mem oria (ANES) Drug form: l 15:38: INJ, ONCE, Stop date: 11/10/17 9:38:00 KAIAWHINA KURA [facility] MAORI famotidine 2016-11 No Route: IV, M emoria (ANES) Drug form: l 15:38: INJ, ONCE, Stop date: 11/10/17 9:38:00 KAIAWHINA KURA [facility] MAORI metoclopram 2016-11 No Route: IV, Memoria hola (ANES) Drug form: l 15:38: INJ, ONCE, Stop date: 11/10/17 9:38:00 KAIAWHINA KURA [facility] MAORI ceFAZolin 2016-11 No Route: IV, Me moria (ANES) Drug form: l 15:38: INJ, ONCE, Stop date: 11/10/17 9:38:00 KAIAWHINA KURA [facility] MAORI ondansetron 2016-11 No Route: IV, Memoria (ANES) 2- Drug form: l 15:38: INJ, ONCE, Stop date: 11/10/17 9:38:00 KAIAWHINA KURA [facility] MAORI dexamethaso 2016-11 No Route: IV, Memoria ne (ANES) 2 Drug form: l 15:38: INJ, ONCE, Stop date: 11/10/17 9:38:00 KAIAWHINA KURA [facility] MAORI fentaNYL 2016-11 No Route: IV, Mem oria (ANES) 2 Drug form: l 15:38: INJ, ONCE, Stop date: 11/10/17 9:38:00 KAIAWHINA KURA [facility] MAORI propofol 2016-11 No Route: IV, Mem oria (ANES) 2- Drug form: l 15:38: INJ, ONCE, Chris 00 Stop date: 11/10/17 9:38:00 KAIAWHINA KURA [facility] MAORI famotidine 2016-11 No Route: IV, M emoria (ANES) Drug form: l 15:38: INJ, ONCE, Chris 00 Stop date: 11/10/17 9:38:00 KAIAWHINA KURA [facility] MAORI metoclopram 2016-11 No Route: IV, Memoria hola (ANES) Drug form: l 15:38: INJ, ONCE, [place] 00 Stop date: 11/10/17 9:38:00 KAIAWHINA KURA [facility] MAORI midazolam 2016-11 No Route: IV, Me moria (ANES) Drug form: l 15:33: SOLN, Chris 00 ONCE, Stop date: 11/10/17 9:33:00 KAIAWHINA KURA [facility] MAORI midazolam 2016-11 No Route: IV, Me moria (ANES) Drug form: l 15:33: SOLN, [place] 00 ONCE, Stop date: 11/10/17 9:33:00 KAIAWHINA KURA [facility] MAORI Lactated 2016-11 No Route: IV, Mem oria Ringers Total l Injection 14:43: Volume: Columba nn IV (ANES) 00 1,000, 1000 mL Start date: 11/10/17 8:43:00 KAIAWHINA KURA [place] MAORI, Stop date: 11/10/17 9:43:00 KAIAWHINA KURA [facility] MAORI Lactated 2016-11 No Route: IV, Mem oria Ringers Total l Injection 14:43: Volume: Columba nn IV (ANES) 00 1,000, 1000 mL Start date: 11/10/17 8:43:00 KAIAWHINA KURA [place] MAORI, Stop date: 11/10/17 9:43:00 KAIAWHINA KURA [facility] MAORI Calcium 2016-11 No 1,000 mL, Memor ia Chloride Rate: 25 l 0.0014 13:01: ml/hr, MEQ/ML / 00 Infuse Potassium over: 40 Chloride hr, Route: 0.004 IV, Dosing MEQ/ML / Weight 90 Sodium kg, Total Chloride Volume: 0.103 1,000, MEQ/ML / Start Sodium date: Lactate 11/10/17 0.028 7:01:00 MEQ/ML KAIAWHINA KURA [facility] MAORI, Injectable Duration: Solution 30 day, Stop date: 12/10/17 7:00:00 KAIAWHINA KURA [place] MAORI, 2.1, m2 Calcium 2016-11 No 1,000 mL, Memor ia Chloride 2- Rate: 25 l 0.0014 13:01: ml/hr, Chris MEQ/ML / 00 Infuse Potassium over: 40 Chloride hr, Route: 0.004 IV, Dosing MEQ/ML / Weight 90 Sodium kg, Total Chloride Volume: 0.103 1,000, MEQ/ML / Start Sodium date: Lactate 11/10/17 0.028 7:01:00 MEQ/ML KAIAWHINA KURA [facility] MAORI, Injectable Duration: Solution 30 day, Stop date: 12/10/17 7:00:00 KAIAWHINA KURA [facility] MAORI, 2.1, m2 No known 2016-11 No No known Metho di medications 1-[address] [facility] No known 2016-11 No No known Metho di medications 1-[address] 13:11: [facility] l Azithromyci Azithromyci Yes Ran 2 tablets Common n n [place] on the [facility] first day[facility] daily for Medical 4 days Center Symbicort Symbicort Yes Ran INHALE 2 Common [place] PUFFS BY [facility] MOUTH - [facility] TWICE [facility] Cefdinir Cefdinir Yes Ran TAKE 1 Com mon [place] CAPSULE BY [facility] EVERY [facility] HOURS FOR kes 10 DAYS [facility] ProAir HFA ProAir HFA Yes Ran INHALE 1 Common [place] TO 2 Spirit PUFF(S) BY - [facility] 4 TO [facility] 6 HR Medical NEEDED-[facility] Center EZING AND BEFORE SPORTS- [place] FOR SCHOOL Mucinex DM Mucinex DM Yes Ran 1 tablet Common [place] as needed [facility] Vital Signs Vital Name Observation Time Observation Value Comments Source Body temperature 2022-10-25 15:58:00 37.44 [facility] Respiratory rate 2022-10-25 15:58:00 18 /min [facility] Body height 2022-10-25 15:58:00 175.3 cm [facility] Body weight 2022-10-25 15:58:00 119.704 kg [facility] BMI 2022-10-25 15:58:00 38.97 kg/m2 [facility] Oxygen saturation in 2022-10-25 15:58:00 100 /min [facility] Arterial blood by [facility] Pulse oximetry Branch Systolic blood 2022-10-25 15:58:00 122 mm[Hg] Univer sity of pressure [facility] Diastolic blood 2022-10-25 15:58:00 83 mm[Hg] Unive rsity of pressure [facility] Heart rate 2022-10-25 15:58:00 72 /min [facility] Systolic (mm Hg) 2019-04-12 14:30:00 Vipin rial Chris Diastolic (mm Hg) 2019-04-12 14:30:00 Mem orial Chris Respitory Rate 2019-04-12 14:30:00 [facility] Systolic (mm Hg) 2019-04-12 14:15:00 Vipin rial Chris Diastolic (mm Hg) 2019-04-12 14:15:00 Mem orial [place] Respitory Rate 2019-04-12 14:15:00 Memori al [facility] Respitory Rate 2019-04-12 14:00:00 [facility] Systolic (mm Hg) 2019-04-12 14:00:00 Vipin rial [place] Diastolic (mm Hg) 2019-04-12 14:00:00 Mem [facility] BMI Calculated 2019-04-10 20:08:00 [facility] Weight 2019-04-10 20:08:00 [facility] Height 2019-04-10 20:08:00 175.26 cm [facility] Respitory Rate 2017-11-10 18:45:00 [facility] Systolic (mm Hg) 2017-11-10 18:45:00 Vipin rial Chris Diastolic (mm Hg) 2017-11-10 18:45:00 Mem orial [facility] Systolic (mm Hg) 2017-11-10 18:30:00 Vipin rial Qu[place] Diastolic (mm Hg) 2017-11-10 18:30:00 Mem orial [facility] Respitory Rate 2017-11-10 18:30:00 Memori al Chris Systolic (mm Hg) 2017-11-10 18:10:00 Vipin rial Chris Diastolic (mm Hg) 2017-11-10 18:10:00 Mem orial Chris Respitory Rate 2017-11-10 18:10:00 Memori [facility] Weight 2017-11-08 17:00:00 Dina Perez BMI Calculated 2017-11-08 17:00:00 Genewilbert Canales Height 2017-11-08 17:00:00 172.72 cm Dina Perez Procedures Procedure Date / Time Performing Clinician Source Performed POCT MOLECULAR STREP 2022-10-25 16:13:00 Unknown, Attending [facility] Cerebral Arachnoid cyst 2004-11-13 00:00:00 Vipin blackwell [place] Reconstruction of Dina Waterman nn anterior cruciate ligament of knee joint Plan of Care Planned Activity Planned Date Details Comments Source Future Scheduled 2022-10-29 COVID-19 VACCINE (#1) [facility] Test 08:05:34 [code = COVID-19 VACCINE (#1)] Future Scheduled 2022-10-29 Screening for [facility] Test 08:05:34 Chlamydia trachomatis (procedure) [code = 344890750] Future Scheduled 2022-10-29 [facility] 08:05:34 [code = INFLUENZA VACCINE] Future Scheduled 2022-07-15 HEPATITIS B VACCINES [facility] Test 14:47:35 (1 of 3 - 3-dose series) [code = HEPATITIS B VACCINES (1 of 3 - 3-dose series)] Future Scheduled 2022-07-15 COVID-19 VACCINE (#1) [facility] Test 14:47:35 [code = COVID-19 VACCINE (#1)] Future Scheduled 2022-07-15 Screening for [facility] Test 14:47:35 Chlamydia trachomatis (procedure) [code = [id number]] Future Scheduled 2022-07-15 INFLUENZA VACCINE [facility] 14:47:35 [code = INFLUENZA VACCINE] Encounters Start End Encounter Admission Attending Care Care Encounter Source Date/Time Date/Time Type Type Clinicians Facility Department ID 2022-10-25 2022-10-25 Outpatient R SPENCER VAPATRICIA [facility] [id number] Univers 09:40:00 10:31:08 CECY winter [facility] 2022-10-25 2022-10-25 Urgent Cecy Palmer [facility] [id number] Univers 09:40:00 10:31:08 Care Unknown, Attending [facility] [id number] alissay of [place] 4.2.7.2.686 Job as DEVAUGHN?BLEA [id number] [address] MEDICAL OFFICE [facility] 2021-11-24 2021-11-24 Letter DONOVAN Hoff [id number] Univers 00:00:00 00:00:00 (Out) Isha Chapman [facility] 350.1.13.10 it y of HOSPITAL 4.2.7.2.686 Job as [id number] [address] 2021-11-22 2021-11-22 Outpatient R BOWEN, [facility] [id number] Univers 20:30:00 20:53:09 CLARISSA maxwelly o f [facility] 2021-11-22 2021-11-22 Laboratory Only, Ang Db Test [facility] 1.2.8 40.114 [id number] Univers 20:30:00 20:45:00 Only Bowen, [facility] [id number] ity of [facility] 4.2.7.2.686 Job as DEVAUGHN?BLEA [phone] [address] MEDICAL OFFICE [facility] 2021-11-22 2021-11-22 Letter Doctor MAN [id number] Univers 00:00:00 00:00:00 (Out) Unassigned, CL[facility] 350.1.13.10 ity of [place] [facility] 4.2.7.2.686 Job as [id number] [address] 2021-11-22 2021-11-22 Letter Doctor MAN [id number] Univers 00:00:00 00:00:00 (Out) Unassigned, CLARITZA 350.1.13.10 ity of [place] [facility] 4.2.7.2.686 Job as [id number] [address] 2019-10-14 2019-10-15 Outpt Diag nullFlavo [facility] [id number] Memoria 14:51:00 05:59:00 Services r Outpatient 02 l Imaging [facility] 2019-10-14 2019-10-15 Outpt Diag nullFlavo [facility] [id number] Memoria 14:51:00 05:59:00 Services r Outpatient 02 l Imaging [facility] 2019-10-14 2019-10-14 Outpatient Elayne MHOIP MHOIP [id number] 08:51:00 23:59:00 Haider Celeste 2019-04-12 2019-04-12 Day [facility]Flavo [facility] [id number] Memoria 10:44:00 14:47:00 Surgery r Qu[place] 01 [facility] 2019-04-12 2019-04-12 Day nullFlavo [facility] [id number] Memoria 10:44:00 14:47:00 Surgery r [place] 01 l [facility] 2019-04-12 2019-04-12 Outpatient KEELEY Hodges [facility] [id number] 05:44:00 09:47:00 Hero Martin Juan 2019-04-12 2019-04-12 Outpatient MHBL [facility]BL [id number] [facility]BL 05:44:00 05:44:00 2018-10-22 2018-10-22 Outpatient [facility] [id number] Common 14:00:00 14:00:00 [facility] 2018 2018 Outpatient [facility] [id number] Common 15:00:00 15:00:00 t [facility] 2017-11-10 2017-11-10 Day nullFlavo [facility] [id number] Memoria 12:03:00 19:00:00 Surgery r [place] 00 l [facility] 2017-11-10 2017-11-10 Day [facility]Flavo [facility] [id number] Memoria 12:03:00 19:00:00 Surgery r Chris 00 l [facility] 2017-11-10 2017-11-10 Outpatient Carroll, OLGA LIDIAPL [facility] [id number] 06:03:00 13:00:00 Hero Malou Juan 2017-10-13 2017-10-13 Outpatient [facility] [id number] Memoria 00:40:00 05:59:00 r Chris 34 l [facility] 2017-10-13 2017-10-13 Outpatient [facility] [id number] Memoria 00:40:00 05:59:00 franchesca Perez 34 l [facility] 2017-10-12 2017-10-12 Outpatient Carroll KEELEY [facility] [id number] 18:40:00 23:59:00 Hero Martinez Results Test Description Test Time Test Comments Results Result Comments Source POCT MOLECULAR STREP 2022-10-25 16:21:32 Test Item Value Reference Range Interpretation Comme nts POCT Molecular Strep (test code = 56036-5) Negative Negative Lab Interpretation (test code = 57652-1) [facility] [id number] 10:58:00 Test Item Value Reference Range Interpretation Comments U Preg (test code = U Negative (04/12/19 5:58 Preg) AM) [facility] [id number] 10:58:00 Test Item Value Reference Range Interpretation Comments U Preg (test code = U Negative (04/12/19 5:58 Preg) AM) [facility] [id number] 13:02:00 Test Item Value Reference Range Interpretation Comments U Preg (test code = U Negative (11/10/17 7:02 Preg) AM) [facility] [id number] 13:02:00 Test Item Value Reference Range Interpretation Comments U Preg (test code = U Negative (11/10/17 7:02 Preg) AM) [facility]
[2022-10-30] MEDS ORDERED: KETOROLAC 30 MG/ML INJ ONE (15:12)
[2022-10-30] MEDS ORDERED: FAMOTIDINE 20 MG/2 ML VIAL IV ONE (15:12)
[2022-10-30] MEDS ORDERED: NA CHLORIDE 0.9% 1,000 ML ONE (15:13)
--- NOTE | 2022-10-30 16:06 | RAD REPORT ---
EXAM DESCRIPTION: RAD - Chest Single View - 10/30/2022 3:12 pm CLINICAL HISTORY: CHEST PAIN COMPARISON: Portable 08/08/2022 TECHNIQUE: AP portable chest image was obtained 10/30/2022 3:12 pm . FINDINGS: Lung volumes are low. Lung forde are clear. Old BASEBALL PLAYER shunt tubing overlies the right chest. Heart and vasculature are normal. No measurable pleural effusion and no pneumothorax. No acute bony abnormality seen. No acute aortic findings suspected. IMPRESSION: No acute cardiopulmonary process. No significant change from comparison study.
--- NOTE | 2022-10-30 16:07 | RAD REPORT ---
EXAM DESCRIPTION: US - Abdomen Exam Limited - 10/30/2022 3:31 pm CLINICAL HISTORY: ABD PAIN COMPARISON: Stone Protocol dated 07/11/2017 FINDINGS: No gallstones, sludge or other abnormalities within the gallbladder lumen. There is no wal l thickening or pericholecystic fluid. No common duct stone or biliary tree dilatation identified. IMPRESSION: Normal gallbladder and biliary tree ultrasound.
[2022-10-30 16:17] LABS: Albumin 3.5 g/dL (3.4-5.0); Bilirubin Total 0.2 mg/dL (0.2-1.0); Potassium 3.8 mmol/L (3.5-5.1); Protein, Total 8.6 g/dL (6.4-8.2); Troponin High Sensitivity 4.3 pg/mL (<58.9)
[2022-10-30 16:18] LABS: Absolute Lymphocytes (CBC) 2.2 K/uL (0.7-4.9); Hematocrit 36.9 % (36.0-45.0); Lymphocytes % 20.2 % (15.3-44.8); MPV 7.7 fL (7.6-11.3); RBC Red Blood Cell Count 4.67 M/uL (3.86-4.86)
[2022-10-30 16:25] LABS: Urine Blood 1+ (Negative); Urine Glucose Negative (Negative); Urine Protein Negative (Negative); Urine Specific Gravity >=1.030 (1.005-1.030); Urine pH 5.5 (5.0-7.0)
[2022-10-30 16:53] LABS: Urine Bacteria None Seen /HPF (<20); Urine Crystals Unidentified Few /HPF (None Seen); Urine Mucus 2+ /HPF (None Seen); Urine RBC <5 /HPF (None Seen); Urine WBC Clump Rare /HPF (None Seen)
--- NOTE | 2022-10-30 17:15 | RAD REPORT ---
EXAM DESCRIPTION: CT - Abdomen Pelvis W Contrast - 10/30/2022 4:37 pm CLINICAL HISTORY: abd pain COMPARISON: No comparisons TECHNIQUE: Biphasic, helical CT imaging of the abdomen and pelvis was performed following 100 ml non -ionic IV contrast. Oral contrast: No. All CT scans are performed using dose optimization technique as appropriate and may include automated exposure control or mA/KV adjustment according to patient size. FINDINGS: No suspicious findings in the lung bases. No cardiomegaly or pericardial effusion. The liver, spleen, and pancreas show no suspicious findings. Gallbladder and biliary tree are also wi thout suspicious finding. Symmetric renal function is seen with no hydronephrosis or suspicious renal mass. No pyelonephritis o r acute parenchymal process. Bladder is fully contracted. No adrenal abnormalities. No uterine or ova dilcia suspicious finding. Small follicles are present. No dilated bowel loops or bowel wall thickening. Shunt tubing is present in the peritoneal cavity ext ending into the deep subcutaneous fatty tissues of the lower chest. No free air, free fluid or inflam matory stranding. No hernia, mass or bulky lymphadenopathy. No suspicious bony findings. IMPRESSION: Contrast enhanced CT abdomen and pelvis showing no significant or suspicious finding.
--- NOTE | 2022-10-30 17:23 | EDPHYS ---
Physician Documentation [facility] Name: Felicita Tolentino Age: 22 yrs Sex: Female : 2000 Arrival Date: 10/30/2022 Time: 14:54 Bed 6 Private MD: ED Physician Omero Yang HPI: 10/30 16:30 This 22 yrs old Black Female presents to ER via Ambulatory with complaints of Chest kb Pain, Abdominal Pain. 16:30 The patient presents with abdominal pain in the upper abdomen. Onset: The kb symptoms/episode began/occurred 1 week(s) ago. The symptoms do not radiate. Associated signs and symptoms: Pertinent positives: chest pain. The symptoms are described as constant. Modifying factors: The symptoms are alleviated by nothing, the symptoms are aggravated by pressure. Severity of pain: At its worst the pain was moderate in the emergency department the pain is unchanged. The patient has not experienced similar symptoms in the past. The patient has not recently seen a physician. Pt reports chest and abd pain that started a week ago. States the chest pain is worse with movement and deep breath. . 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 kb 16:29 Cardiovascular: Positive for chest pain, Negative for edema, orthopnea, palpitations, paroxysmal nocturnal dyspnea. 16:29 Abdomen/GI: Positive for abdominal pain. 16:29 All other systems are negative. Exam: 16:29 Constitutional: This is a well developed, well nourished patient who is awake, alert, kb and in no acute distress. Head/Face: Normocephalic, atraumatic. ENT: Moist Mucous membranes Cardiovascular: Regular rate and rhythm with a normal S1 and S2. No gallops, murmurs, or rubs. No pulse deficits. Respiratory: Respirations even and unlabored. No increased work of breathing. Talking in full sentences Skin: Warm, dry with normal turgor. Normal color. MS/ Extremity: Pulses equal, no cyanosis. Neurovascular intact. Full, normal range of motion. Neuro: Awake and alert, GCS 15, oriented to person, place, time, and situation. Moves all extremities. Normal gait. Psych: Awake, alert, with orientation to person, place and time. Behavior, mood, and affect are within normal limits. 16:29 Chest/axilla: Inspection: normal, Palpation: tenderness, that is mild, of the anterior aspect of right upper chest and anterior aspect of left upper chest. 16:29 Abdomen/GI: Inspection: abdomen appears normal, Bowel sounds: normal, in all quadrants, Palpation: soft, in all quadrants, moderate abdominal tenderness, in the right upper quadrant and right lower quadrant. 16:41 ECG was reviewed by the Attending Physician. kb Vital Signs: 15:01 BP 160 / 89; Pulse 105; Resp 20; Temp 98.2; Pulse Ox 100% on R/A; Pain 7/10; hb 16:43 BP 133 / 75; Pulse 89; Resp 18; Pulse Ox 100% on R/A; Pain 3/10; mb9 17:22 BP 119 / 59; Pulse 78; Resp 16; Pulse Ox 100% on R/A; mb9 MDM: 14:59 Patient medically screened. kb 16:28 Data reviewed: vital signs, nurses notes. Data interpreted: Pulse oximetry: on room air kb is 100 %. Interpretation: normal. 17:22 Counseling: I had a detailed discussion with the patient and/or guardian regarding: the kb historical points, exam findings, and any diagnostic results supporting the discharge/admit diagnosis, lab results, radiology results, the need for outpatient follow up, a family practitioner, to return to the emergency department if symptoms worsen or persist or if there are any questions or concerns that arise at home. 10/30 15:05 Order name: CBC with Diff; Complete Time: 16:21 kb 10/30 15:05 Order name: CMP; Complete Time: 16:21 kb 10/30 15:05 Order name: Lipase; Complete Time: 16:21 kb 10/30 15:05 Order name: Troponin High Sensitivity; Complete Time: 16:21 kb 10/30 16:25 Order name: Urine Dipstick-Ancillary; Complete Time: 16:26 EDMS 10/30 16:26 Order name: Urine Microscopic Only; Complete Time: 16:56 kb 10/30 15:05 Order name: CT Abd/Pelvis - IV Contrast Only; Complete Time: 17:17 kb 10/30 15:05 Order name: Chest Single View XRAY; Complete Time: 16:13 kb 10/30 15:05 Order name: US Abdomen Limited; Complete Time: 16:13 kb 10/30 16:26 Order name: Urine --Ancillary (enter results) eb 10/30 16:57 Order name: Urine Culture EDVT 10/30 15:05 Order name: IV Saline Lock; Complete Time: 15:49 kb 10/30 15:05 Order name: Labs collected and sent; Complete Time: 15:49 kb 10/30 15:05 Order name: Urine Dipstick-Ancillary (obtain specimen); Complete Time: 15:53 kb 10/30 15:05 Order name: Urine Test (obtain specimen); Complete Time: 16:49 kb 10/30 15:05 Order name: EKG; Complete Time: 15:05 kb 10/30 15:05 Order name: EKG - Nurse/Tech; Complete Time: 15:09 kb EC:41 Rate is 90 beats/min. Rhythm is regular. QRS [place] is Normal. UT interval is normal at kb 150 msec. QRS interval is normal at 84 msec. QT interval is normal at 418 msec. Administered Medications: 15:40 Drug: NS 0.9% 1000 ml Route: IV; Rate: 1 bolus; Site: right antecubital; mb9 15:40 Drug: Ketorolac 15 mg Route: IVP; Site: right antecubital; mb9 16:43 Follow up: Response: No adverse reaction mb9 15:42 Drug: Pepcid (famotidine) 20 mg Route: IVP; Site: right antecubital; mb9 16:43 Follow up: Response: No adverse reaction mb9 Disposition Summary: 10/30/22 17:22 Discharge Ordered Location: Home kb Condition: Stable kb Diagnosis - Chest pain, unspecified kb - Abdominal pain, Generalized kb Followup: kb - With: Emergency Department - When: As needed - Reason: Worsening of condition Followup: kb - With: Private Physician - When: 2 - 3 days - Reason: Recheck today's complaints, Continuance of care, Re-evaluation by your physician Discharge Instructions: - Discharge Summary Sheet kb - Abdominal Pain, Adult, [id number] kb - Nonspecific Chest Pain, Adult, [id number] kb Forms: - Medication Reconciliation Form kb - Thank You Letter kb - Antibiotic Education kb - Prescription Opioid Use kb Prescriptions: - Diclofenac Sodium 75 mg Oral tablet,delayed release (DR/EC) - take 1 tablet by ORAL route 2 times per day As needed; 30 tablet; Refills: 0, kb Product Selection Permitted Signatures: Dispatcher [employer] Roberta Johnson, AUGUSTC ANGELA-Nona Ward, RN RN Vanessa Christianson RN RN mb9
--- NOTE | 2022-10-30 17:23 | ER ---
Nurse's Notes [facility] Name: Felicita Tolentino Age: 22 yrs Sex: Female : 2000 Arrival Date: 10/30/2022 Time: 14:54 Bed 6 Private MD: Diagnosis: Chest pain, unspecified;Abdominal pain, Generalized Presentation: 10/30 15:01 Chief complaint: Chest pain that is worse with deep breathing x 1 week, and upper hb abdominal pain since yesterday. Coronavirus screen: At this time, the client does not indicate any symptoms associated with coronavirus-19. Ebola Screen: No symptoms or risks identified at this time. Initial Sepsis Screen: Does the patient meet any 2 criteria? No. Patient's initial sepsis screen is negative. Does the patient have a suspected source of infection? No. Patient's initial sepsis screen is negative. Risk Assessment: Do you want to hurt yourself or someone else? Patient reports no desire to harm self or others. Onset of symptoms was October 24, 2022. 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 Abuse screen: Denies threats or abuse. Nutritional screening: No deficits noted. Tuberculosis screening: No symptoms or risk factors identified. Assessment: 15:01 General: Appears uncomfortable, Behavior is anxious. Pain: Noted to be grimacing. Pain: mb9 Complains of pain in chest and abdomen Pain does not radiate. Pain currently is 10 out of 10 on a pain scale. Quality of pain is described as pressure, Pain began Aggravated by increased activity, repositioning. Neuro: Level of Consciousness is awake, alert, obeys commands, Oriented to person, place, time, situation, Appropriate for age. Cardiovascular: Heart tones S1 S2 present Rhythm is regular. Respiratory: Airway is patent Respiratory effort is even, unlabored, Respiratory pattern is regular, symmetrical, Breath sounds are clear bilaterally. GI: Abdomen is flat, non-distended, Bowel sounds present X 4 quads. Abd is soft Abdomen is tender to palpation X 4 quads. : No signs and/or symptoms were reported regarding the genitourinary system. EENT: No signs and/or symptoms were reported regarding the EENT system. Derm: Skin is intact, Skin is dry, Skin is normal, Skin temperature is warm. Musculoskeletal: Range of motion: intact in all extremities. 16:20 Reassessment: pt taken to CT via wheelchair. mb9 16:45 Reassessment: Patient states feeling better. Patient states symptoms have improved. mb9 Reassessment: pt states chest pain is better but stomach is still hurting. Airway is patent, respirations are even and unlabored. Rhythm is regular. Skin is warm, dry, and intact. Pain:. 17:30 Reassessment: No changes from previously documented assessment. Patient states feeling mb9 better. Patient states symptoms have improved. Vital Signs: 15:01 BP 160 / 89; Pulse 105; Resp 20; Temp 98.2; Pulse Ox 100% on R/A; Pain 7/10; hb 16:43 BP 133 / 75; Pulse 89; Resp 18; Pulse Ox 100% on R/A; Pain 3/10; mb9 17:22 BP 119 / 59; Pulse 78; Resp 16; Pulse Ox 100% on R/A; mb9 ED Course: 14:54 Patient arrived in ED. as 14:55 Roberta Huber FNP-C is PHCP. kb 14:55 Omero Yang MD is Attending Physician. kb 14:57 Vanessa Christianson RN is Primary Nurse. mb9 15:03 Triage completed. hb 15:03 Arm band placed on. hb 15:03 Arm band placed on. mb9 15:03 Placed in gown. Bed in low position. Call light in reach. Side rails up X 1. Client mb9 placed on continuous cardiac and pulse oximetry monitoring. NIBP monitoring applied. senior engineering specialist on. 15:05 EKG done, by ED staff, reviewed by Roberta Mayo YARN MERCERIZER OPERATOR-C. mb9 15:14 Chest Single View XRAY In Process Unspecified. EDMS 15:33 US Abdomen Limited In Process Unspecified. EDMS 15:40 Inserted saline lock: 22 gauge in right antecubital area, using aseptic technique. mb9 ,using aseptic technique. done by ALEC Combs Blood collected. 15:51 Radiology exam delayed due to test not completed at this time. mw3 16:39 CT Abd/Pelvis - IV Contrast Only In Process Unspecified. EDMS 16:43 Urine Microscopic Only Sent. mb9 17:24 No provider procedures requiring assistance completed. mb9 17:24 IV discontinued, intact, bleeding controlled, No redness/swelling at site. Pressure mb9 dressing applied. Administered Medications: 15:40 Drug: NS 0.9% 1000 ml Route: IV; Rate: 1 bolus; Site: right antecubital; mb9 15:40 Drug: Ketorolac 15 mg Route: IVP; Site: right antecubital; mb9 16:43 Follow up: Response: No adverse reaction mb9 15:42 Drug: Pepcid (famotidine) 20 mg Route: IVP; Site: right antecubital; mb9 16:43 Follow up: Response: No adverse reaction mb9 Medication: 15:03 VIS not applicable for this client. mb9 Outcome: 17:22 Discharge ordered by . kb 17:24 Discharged to home ambulatory. mb9 17:24 Condition: stable 17:24 Discharge instructions given to patient, Instructed on discharge instructions, follow up and referral plans. Demonstrated understanding of instructions, follow-up care, medications, Prescriptions given X 1. 17:30 Patient left the ED. mb9 Signatures: Dispatcher [employer] EDME Roberta Huber, YARN MERCERIZER OPERATOR-C YARN MERCERIZER OPERATOR-Ayana Castano as Nona Rodrigez RN RN Chelsey Gabriel mw3 Vanessa Christianson RN RN mb9 Corrections: (The following items were deleted from the chart) 15:04 15:01 Pain: Complains of pain in chest and abdomen Pain does not radiate. Pain mb9 currently is 10 out of 10 on a pain scale. Quality of pain is described as pressure, Pain began 2-3 days ago. Aggravated by increased activity, repositioning, mb9
[2022-10-30 17:36] VITALS: TEMP 98.2; O2SAT 100
[2022-10-30 17:38] VITALS: BP 119/59
--- NOTE | 2022-11-01 15:19 | EKG ---
Test Date: 2022-10-30 Test Time: 15:06:57 Rn Private Duty: MB MEASUREMENT RESULTS: Intervals: Rate: 90 SD: 150 QRSD: 84 QT: 342 QTc: 418 [place]: P: 59 SD: 150 QRS: 37 T: 15 INTERPRETIVE STATEMENTS: Normal sinus rhythm Nonspecific T wave abnormality Abnormal ECG Compared to ECG 08/08/2022 16:37:32 T-wave abnormality now present Electronically Signed On 11-01-22 15:16:26 GLOBAL MOBILITY SPECIALIST by Perry Mejia
== END 2022-10-30 17:30 | disposition home or self-care (01) ==
LOC: ER 14:54
DX: R07.89 Other chest pain (principal); R10.84 Generalized abdominal pain; Z98.2 Presence of cerebrospinal fluid drainage device
CPT/HCPCS: 93005; 87088; 85025; 87086; 36415; 81025; 84484; 83690; 80053; 74177; 71045; 76705; 96375; 96374; 99284; Q9967; J7030; 81003; 81015

== ENCOUNTER 2022-10-31 14:44 | Emergency (ER) | payer OTHER ==
--- OUTSIDE RECORDS SUMMARY | 2022-10-31 14:48 | XMS REPORT | Continuity of Care Document ---
:2000 Author Organization [facility] t Address [address] [place] [address] Care Team Providers Name Role Phone Evaristo ROBLES, Ila Lujan Primary Care Physician [phone] CECY MCNEILL Attending Clinician Unavailable Spencer HOLMAN, Cecy Attending Clinician Unknown, Attending Attending Clinician Unavailable Isha Hoff RN Attending Clinician Unavailable CLARISSA WISEMAN Attending Clinician Unavailable Only, Ang Db Test Attending Clinician Unavailable Clarissa Miles Attending Clinician Doctor Unassigned, [place] Attending Clinician Unavailable Giorgi Alvarez Attending Clinician Hero Hodges Jr Attending Clinician Payers Payer Name Policy Type Policy Number Effective Date Expiration Date S ource HIM AMBETTER FROM [id number] 2021 [facility] 00:00:00 Problems Condition Condition Condition Status Onset Resolution Last Treating Co mments Source Name Details Category Date Date Treatment Clinician Date UNK UNK Diagnosis Active 2019-04-12 Mem oria Active 04-09 05:44:00 l 04/09/2019 00:00: Medardo Arroyo Chris DEQUERVAIN DEQUERVAI Diagnosis Active 2019-04-16 Kash RODRIGES 04-09 15:57:00 l RELAEASE, RELAEASE, 00:00: Mumtaz stock LT WRIST LT WRIST 00 Active 04/09/2019 [facility] Chris ACL ACL Diagnosis Active 2016-112018-05-05 Mem oria Active 18:20:00 l 11/10/2017 08:00: Medardo irene [facility] 00 [facility] KNEE KNEE Diagnosis Active 2016-112017-11-10 Mem oria ARTHROSCOP ARTHROSCOP 01-02 06:10:00 l Y/ACL Y/ACL 00:00: Chris RECONSTRUC RECONSTRUC 00 TION/ C B TION/ C B Active 11/01/2017 [facility] Chris M25.562 - M25.562 Diagnosis Active 2016-112017-11-12 Memoria PAIN IN - PAIN IN 12-12 15:46:00 l LEFT KNEE LEFT KNEE 00:01: Mumtaz montrell Active 00 10/12/2017 OLGA LIDIA [facility] [place] MRI LEG MRI LEG Diagnosis Active 2016-112017-10-12 Memoria Active 12-12 18:47:00 l 10/12/2017 00:00: Medardo irene [place] [address] Chris De De Problem Active Common Quervain's Quervain's Sp andrade tenosynovi tenosynovi - [facility] t[facility], left tis, left [facility] Other Other Problem Active Common chronic chronic Spirit pain pain - [facility] Pain in Pain in Problem Active Common left wrist left wrist Sp andrade - [facility] Injury of Injury of Problem Active Com mon left left Spirit radial radial - [facility] nerve at nerve at [facility] level, level, Medical subsequent subsequent Ce nter encounter encounter Cough Cough Problem Active Common Spirit - [facility] Slow Slow Problem Active Common transit transit Spirit constipati constipati - [facility] on on [facility] Rupture of Rupture Problem Active 2019-10-16 Memoria anterior of 23:44:45 l cruciate anterior Medardo irene ligament cruciate (disorder) ligament (disorder) Active Problem 10/16/2019 Madeleine Foster No known No known Disease Unive rs active active ity of problems problems [facility] Arachnoid Arachnoid Problem Resolve 2004-2019-10-16 2019-10-16 Memoria cyst cyst d 11-13 23:44:45 23:44:45 l (disorder) (disorder) 00:00: He rmann Resolved 00 11/13/2004 Problem 10/16/2019 Madeleine Foster Allergies, Adverse Reactions, Alerts Allergy Allergy Status Severity Reaction(s) Onset Inactive Treating Comm ents Source Name Type Date Date Clinician NO KNOWN Drug Active Univers ALLERGIE Class ity of S [facility] Social History Social Habit Start Date Stop Date Quantity Comments Source Exposure to 2022-10-15 2022-10-25 Not sure [facility] SARS-CoV-2 00:00:00 09:42:00 [facility] (event) Branch Tobacco use and 2022-10-25 2022-10-25 Smokeless tobacco Un iversity of exposure 00:00:00 00:00:00 non-user [facility] Sex Assigned At [birth year] [facility] 00:00:00 00:00:00 Smoking Status Start Date Stop Date Source Unknown if ever smoked Universit y of [facility] Social History [facility] Medications Ordered Filled Start Stop Current Ordering Indication Dosage Frequency Signature Comments Components Source Medication Medication Date Date Medication? Clinician (SIG) Name Name benzonatate 2021-11 Yes [id number] 200mg Take 2 Univers 100 mg 2-13 capsules ity of capsule 00:00: by mouth [place] 00 every 8 Medical (eight) Branch hours as needed for Cough. bromphenira 2021-11 Yes [id number] 10mL Take 10 mL Univers mine-pseudo 2-13 by mouth 4 it y of ephedrine-D 00:00: (four) [place] M (BROMFED 00 times Medical DM) 2-30-10 daily as Bran ch mg/5 mL needed for syrup Congestion /Allergies . amoxicillin 2021-11- Yes [id number] 1{tbl} Take 1 Univers -clavulanat 2-13 12-21 tablet by it y of e 00:00: 05:59 mouth in [place] (AUGMENTIN) 00 :00 the Medical 875-125 mg morning Branch per tablet and 1 tablet in the evening. Do all this for 7 days. No known No Univers medications 1-10 ity of 20:37: [address] No known No Univers medications 1-10 ity of 20:37: [address] Zofran No Notes: Memoria 04-12 (Same as: l 13:55: Zofran) [place] 00 MEDICATION WASTE Product Size: 4 mg Product Wasted: ___ mg Acetaminoph No Notes: Do M emoria en 325 MG / 5-31 not exceed l Oxycodone 13:55: 4gm/day of He rmann Hydrochlori 00 acetaminop de 5 MG hen. (Same Oral Tablet as: [Percocet Percocet-5 5/325] /325) Morphine 2019-0 No 2 mg, 1 Memori a 5-31 mL, Route: l 13:55: IVP, Drug [place] 00 form: SOLN, Q3H, Dosing Weight 93.182, kg, PRN Pain Score 1-3, Start date: 04/12/19 8:55:00 CDT, Duration: 30 day, Stop date: 05/12/19 8:54:00 CDT Zofran No Notes: Memoria 5-31 (Same as: l 13:55: Zofran) [place] 00 MEDICATION WASTE Product Size: 4 mg Product Wasted: ___ mg Acetaminoph No Notes: Do M emoria en 325 MG / 5-31 not exceed l Oxycodone 13:55: 4gm/day of He rmann Hydrochlori 00 acetaminop de 5 MG hen. (Same Oral Tablet as: [Percocet Percocet-5 5/325] /325) Morphine 2019-0 No 2 mg, 1 Memori a 5-31 mL, Route: l 13:55: IVP, Drug [place] 00 form: SOLN, Q3H, Dosing Weight 93.182, kg, PRN Pain Score 1-3, Start date: 04/12/19 8:55:00 CDT, Duration: 30 day, Stop date: 05/12/19 8:54:00 CDT Zofran No Notes: Memoria 5-31 (Same as: l 13:55: Zofran) Chris 00 MEDICATION WASTE Product Size: [...] day, Stop date: 05/12/19 8:54:00 CDT ondansetron 2019-0 No Route: IV, Memoria (ANES) 5-31 Drug form: l 13:44: INJ, ONCE, Stop date: 04/12/19 8:44:00 CDT dexamethaso 2019-0 No Route: IV, Memoria ne (ANES) 5-31 Drug form: l 13:44: INJ, ONCE, Stop date: 04/12/19 8:44:00 CDT ondansetron 2019-0 No Route: IV, Memoria (ANES) 5-31 Drug form: l 13:44: INJ, ONCE, Stop date: 04/12/19 8:44:00 CDT dexamethaso 2019-0 No Route: IV, Memoria ne (ANES) 5-31 Drug form: l 13:44: INJ, ONCE, Stop date: 04/12/19 8:44:00 CDT ondansetron 2019-0 No Route: IV, Memoria (ANES) 5-31 Drug form: l 13:44: INJ, ONCE, Stop date: 04/12/19 8:44:00 CDT dexamethaso 2019-0 No Route: IV, Memoria ne (ANES) 5-31 [...] ONCE, Stop date: 04/12/19 8:39:00 CDT ceFAZolin 2019-0 No Route: IV, Me moria (ANES) 5-31 Drug form: l 13:39: INJ, ONCE, Stop date: 04/12/19 8:39:00 CDT lidocaine 2019-0 No Route: IV, Me moria (ANES) 5-31 Drug form: l 13:39: INJ, ONCE, Stop date: 04/12/19 8:39:00 CDT propofol 2019-0 No Route: IV, Mem oria (ANES) 5-31 Drug form: l 13:39: INJ, ONCE, Stop date: 04/12/19 8:39:00 CDT ceFAZolin 2019-0 No Route: IV, Me [...] CDT, Stop date: 04/12/19 8:47:00 CDT Lactated 2019-0 No Route: IV, Mem oria Ringers 5-31 Total l Injection 12:47: Volume: Columba nn IV (ANES) 00 1,000, 1000 mL Start date: 04/12/19 7:47:00 CDT, Stop date: 04/12/19 8:47:00 CDT Calcium 2019-0 No 1,000 mL, Memor ia Chloride 5-31 Rate: 25 l 0.0014 10:57: ml/hr, [place] MEQ/ML / 00 Infuse Potassium over: 40 [...] Rate: 25 l 0.9% IV 10:57: ml/hr, [place] 1,000 mL 00 Infuse over: 40 hr, Route: IV, Dosing Weight 93.182 kg, Total Volume: 1,000, Start date: 04/12/19 5:57:00 CDT, Duration: 30 day, Stop date: 05/12/19 5:56:00 CDT, 2.15, m2 Prozac 2019-0 Yes 20 mg, PO, Memor ia 5-29 Daily l 19:55: Chris 00 Prozac 2019-0 Yes 20 mg, PO, Memor ia 5-29 Daily l 19:55: Chris 00 Prozac 2019-0 Yes 20 mg, PO, Memor ia 5-29 Daily l 19:55: Chris 00 Oxycodone 2017- No 5 mg, 1 Memor ia Hydrochlori 2-29 tab, l de 5 MG 18:26: Route: PO, Herm montrell Oral Tablet 00 ONCE, Dosing Weight 90, kg, Start date: 11/10/17 12:26:00 [employer] OFF[employer], Stop date: 11/10/17 12:26:00 [employer]IVE OFF[employer] Oxycodone 2017- No 5 mg, 1 Memor ia Hydrochlori 2-29 tab, l de 5 MG 18:26: Route: PO, Herm montrell Oral Tablet 00 ONCE, Dosing Weight 90, kg, Start date: 11/10/17 12:26:00 [employer]IVE OFF[employer]ER, Stop date: 11/10/17 12:26:00 [employer]EC[employer]IVE OFF[employer]ER Oxycodone 2016-11 No 5 mg, 1 Memor ia Hydrochlori 2- tab, l de 5 MG 18:26: Route: PO, Herm montrell Oral Tablet 00 ONCE, Dosing Weight 90, kg, Start date: 11/10/17 12:26:00 [employer]EC[employer]IVE OFF[employer]ER, Stop date: 11/10/17 12:26:00 [employer]MAN [employer]IDENT [employer]EC[employer]IVE OFFICER ketOROLAC 2016-11 No IV, ONCE Vipin minnie (ANES) 2 l 17:16: [place] ketOROLAC 2016-11 No IV, ONCE Vipin minnie (ANES) l 17:16: Chris 00 ketOROLAC 2016-11 No IV, ONCE Vipin minnie (ANES) l 17:16: Chris 00 Naloxone 2016-11 No 0.4 mg, Memori a Route: l 17:05: IVP, [place] 00 Q2MIN, Dosing Weight 90, kg, PRN Narcotic Reversal, Start date: 11/10/17 11:05:00 [employer]EC[employer]IVE OFF[employer]ER, Duration: 8 doses or times, Stop date: Limited # of times Flumazenil 2016-11 No 0.2 mg, Vipin minnie Route: l 17:05: IVP, PRN, Dosing Weight 90, kg, PRN Benzodiaze pine Reversal, Initial dose, Start date: 11/10/17 11:05:00 [employer]EC[employer]IVE OFFICER, Duration: 30 day, Stop date: 12/10/17 11:04:00 [employer]EC[employer]IVE OFF[employer]ER Ondansetron 2016-11 No 4 mg, Memor ia Route: l 17:05: IVP, ONCE, Dosing Weight 90, kg, PRN Nausea & Vomiting, Start date: 11/10/17 11:05:00 [employer]IVE [employer] Fentanyl 2016-11 No 25 Memoria 2-29 microgram, l 17:05: Route: [place] IVP, Q5Min, Dosing Weight 90, kg, PRN Pain Score 4-6, Priority: Routine, Start date: 11/10/17 11:05:00 [employer]IVE OFF[employer]ER, Duration: 4 doses or times, Stop date: Limited # of times Ketorolac 2016-11 Yes 30 mg, Memori a Route: l 17:05: IVP, ONCE, [place] 00 Dosing Weight 90, kg, Start date: 11/10/17 11:05:00 [employer]IVE OFF[employer]ER, Stop date: 11/10/17 11:05:00 [employer]EC[employer]IVE OFF[employer]ER Labetalol 2016- No 10 mg, Memori a Route: l 17:05: IVP, [place] 00 Q5Min, Dosing Weight 90, kg, PRN Elevated BP, Start date: 11/10/17 11:05:00 [employer]MAN [employer]IDENT [employer]EC[employer]IVE OFFICER, Duration: 5 doses or times, Stop date: Limited # of times Hydralazine 2016- No 10 mg, Vipin minnie Route: l 17:05: IVP, [place] 00 Q20Min, Dosing Weight 90, kg, PRN Elevated BP, Start date: 11/10/17 11:05:00 [employer]EC[employer]IVE OFF[employer]ER, Duration: 2 doses or times, Stop date: Limited # of times Albuterol 2016-11 No 2.49 mg, Vipin minnie 0.83 MG/ML Route: l Inhalant 17:05: NEB, Chris Solution 00 Q20Min, Dosing Weight 90, kg, PRN Wheezing, Priority: STAT, Start date: 11/10/17 11:05:00 [employer]IVE OFF[employer]ER, Duration: 30 day, Stop date: 12/10/17 11:04:00 [employer]IVE [employer]ER Morphine 2016- No 4 mg, Memoria Route: l 17:05: IVP, Chris 00 Q5Min, Dosing Weight 90, kg, PRN Pain Score 7-10, Start date: 11/10/17 11:05:00 [employer]IVE OFF[employer]ER, Duration: 3 doses or times, Stop date: Limited # of times Naloxone 2016- No 0.4 mg, Memori a Route: l 17:05: IVP, [place] 00 Q2MIN, Dosing Weight 90, kg, PRN Narcotic Reversal, Start date: 11/10/17 11:05:00 [employer]EC[employer]IVE OFFICER, Duration: 8 doses or times, Stop date: Limited # of times Albuterol 2016-11 No 2.49 mg, Vipin minnie 0.83 MG/ML Route: l Inhalant 17:05: NEB, [place] Solution 00 Q20Min, Dosing Weight 90, kg, PRN Wheezing, Priority: STAT, Start date: 11/10/17 11:05:00 CHA[employer]MAN [employer]IDENT [employer] EXEC[employer]IVE OFFICER, Duration: 30 day, Stop date: 12/10/17 11:04:00 [employer]MAN [employer]IVE OFF[employer]ER Morphine 2016-11 No 4 mg, Memoria 2 Route: l 17:05: IVP, Chris 00 Q5Min, Dosing Weight 90, kg, PRN Pain Score 7-10, Start date: 11/10/17 11:05:00 [employer]MAN [employer]EC[employer]IVE OFFICER, Duration: 3 doses or times, Stop date: Limited # of times Naloxone 2016-11 No 0.4 mg, Memori a Route: l 17:05: IVP, Chris 00 Q2MIN, Dosing Weight 90, kg, PRN Narcotic Reversal, Start date: 11/10/17 11:05:00 [employer]IDENT [employer]EC[employer]IVE OFFICER, Duration: 8 doses or times, Stop date: Limited # of times Flumazenil 2016-11 No 0.2 mg, Vipin minnie Route: l 17:05: IVP, PRN, Chris 00 Dosing Weight 90, kg, PRN Benzodiaze pine Reversal, Initial dose, Start date: 11/10/17 11:05:00 [employer]MAN [employer]EC[employer]IVE OFFICER, Duration: 30 day, Stop date: 12/10/17 11:04:00 [employer]IVE OFF[employer]ER Ondansetron 2016-11 No 4 mg, Memor ia Route: l 17:05: IVP, ONCE, Chris 00 Dosing Weight 90, kg, PRN Nausea & Vomiting, Start date: 11/10/17 11:05:00 [employer]IVE OFF[employer]ER Fentanyl 2016-11 No 25 Memoria 2-29 microgram, l 17:05: Route: [place] 00 IVP, Q5Min, Dosing Weight 90, kg, PRN Pain Score 4-6, Priority: Routine, Start date: 11/10/17 11:05:00 [employer]MAN [employer]IDENT [employer]EC[employer]IVE OFFICER, Duration: 4 doses or times, Stop date: Limited # of times Ketorolac 2016-11 Yes 30 mg, Memori a Route: l 17:05: IVP, ONCE, Chris 00 Dosing Weight 90, kg, Start date: 11/10/17 11:05:00 CHA[employer]MAN [employer]IDENT [employer]EC[employer]IVE OFFICER, Stop date: 11/10/17 11:05:00 CHA[employer]MAN [employer]IDENT [employer] EXEC[employer]IVE OFFICER Labetalol 2016-11 No 10 mg, Memori a Route: l 17:05: IVP, Chris 00 Q5Min, Dosing Weight 90, kg, PRN Elevated BP, Start date: 11/10/17 11:05:00 CHA[employer]MAN [employer]IDENT [employer] EXECUTIVE OFFICER, Duration: 5 doses or times, Stop date: Limited # of times Hydralazine 2016-11 No 10 mg, Vipin minnie 2-29 Route: l 17:05: IVP, [place] 00 Q20Min, Dosing Weight 90, kg, PRN Elevated BP, Start date: 11/10/17 11:05:00 CHA[employer]MAN PRESIDENT AND [employer] EXECUTIVE OFFICER, Duration: 2 doses or times, Stop date: Limited # of times Flumazenil 2016-11 No 0.2 mg, Vipin minnie 2-29 Route: l 17:05: IVP, PRN, Chris 00 Dosing Weight 90, kg, PRN Benzodiaze pine Reversal, Initial dose, Start date: 11/10/17 11:05:00 CHAIRMAN PRESIDENT AND [employer] EXECUTIVE OFFICER, Duration: 30 day, Stop date: 12/10/17 11:04:00 [employer]MAN [employer]IDENT [employer] EXECUTIVE OFFICER Ondansetron 2016-11 No 4 mg, Memor ia 2 Route: l 17:05: IVP, ONCE, [place] 00 Dosing Weight 90, kg, PRN Nausea & Vomiting, Start date: 11/10/17 11:05:00 [employer]MAN [employer]IDENT [employer] EXECUTIVE OFFICER Fentanyl 2016-11 No 25 Memoria 2-29 microgram, l 17:05: Route: Chris 00 IVP, Q5Min, Dosing Weight 90, kg, PRN Pain Score 4-6, Priority: Routine, Start date: 11/10/17 11:05:00 [employer]MAN PRESIDENT AND [employer] EXECUTIVE OFFICER, Duration: 4 doses or times, Stop date: Limited # of times Ketorolac 2016-11 Yes 30 mg, Memori a 2-29 Route: l 17:05: IVP, ONCE, [place] 00 Dosing Weight 90, kg, Start date: 11/10/17 11:05:00 CHAIRMAN PRESIDENT AND [employer] EXECUTIVE OFFICER, Stop date: 11/10/17 11:05:00 CHA[employer]MAN PRESIDENT [employer] EXECUTIVE OFFICER Labetalol 2016-11 No 10 mg, Memori a 2-29 Route: l 17:05: IVP, [place] 00 Q5Min, Dosing Weight 90, kg, PRN Elevated BP, Start date: 11/10/17 11:05:00 CHAIRMAN PRESIDENT AND [employer] EXECUTIVE OFFICER, Duration: 5 doses or times, Stop date: Limited # of times Hydralazine 2016-11 No 10 mg, Vipin minnie 2-29 Route: l 17:05: IVP, Chris 00 Q20Min, Dosing Weight 90, kg, PRN Elevated BP, Start date: 11/10/17 11:05:00 CHAIRMAN PRESIDENT AND [employer] EXECUTIVE OFFICER, Duration: 2 doses or times, Stop date: Limited # of times Albuterol 2016-11 No 2.49 mg, Vipin minnie 0.83 MG/ML Route: l Inhalant 17:05: NEB, [place] Solution 00 Q20Min, Dosing Weight 90, kg, PRN Wheezing, Priority: STAT, Start date: 11/10/17 11:05:00 CHAIRMAN PRESIDENT AND [employer] EXECUTIVE OFFICER, Duration: 30 day, Stop date: 12/10/17 11:04:00 CHA[employer]MAN PRESIDENT AND [employer] EXECUTIVE OFFICER Morphine 2016-11 No 4 mg, Memoria Route: l 17:05: IVP, [place] 00 Q5Min, Dosing Weight 90, kg, PRN Pain Score 7-10, Start date: 11/10/17 11:05:00 CHA[employer]MAN PRESIDENT AND [employer] EXECUTIVE OFFICER, Duration: 3 doses or times, Stop date: Limited # of times Tylenol 2016-11 No Notes: Do Memor ia 2-29 not exceed l 16:53: 4 gm/day. Chris 00 (Same as: Tylenol) Roxicodone 2016-11 No Notes: Memor ia 2-29 (Same as: l 16:53: Roxicodone ) Tylenol 2016-11 No Notes: Do Memor ia 2-29 not exceed l 16:53: 4 gm/day. [place] 00 (Same as: Tylenol) Roxicodone 2016-11 No Notes: Memor ia 2-29 (Same as: l 16:53: Roxicodone ) Tylenol 2016-11 No Notes: Do Memor ia 2-29 not exceed l 16:53: 4 gm/day. [place] 00 (Same as: Tylenol) Roxicodone 2016-11 No Notes: Memor ia 2-29 (Same as: l 16:53: Roxicodone ) Zofran 2016-11 No Notes: Memoria 2-29 (Same as: l 16:32: Zofran) MEDICATION WASTE Product Size: 4 mg Product Wasted: ___ mg Acetaminoph 2016-11 No 2 tab, Vipin minnie en 325 MG / Route: PO, l Oxycodone 16:32: Drug Form: Wili rmann Hydrochlori 00 TAB, de 5 MG Dosing Oral Tablet Weight 90, [Percocet kg, Q4H, 5/325] PRN Pain, Start date: 11/10/17 10:32:00 [employer]MAN [employer]IDENT [employer]IVE OFFICER, Duration: 30 day, Stop date: 12/10/17 10:31:00 [employer]MAN [employer]IDENT [employer]EC[employer]IVE OFFICER Morphine 2016-11 No Notes: Memoria 2-29 (Same l 16:32: as:MORPhin Chris 00 e Sulfate) Zofran 2016-11 No Notes: Memoria 2-29 (Same as: l 16:32: Zofran) Chris MEDICATION WASTE Product Size: 4 mg Product Wasted: ___ mg Acetaminoph 2016-11 No 2 tab, Vipin minnie en 325 MG / Route: PO, l Oxycodone 16:32: Drug Form: Wili rmann Hydrochlori 00 TAB, de 5 MG Dosing Oral Tablet Weight 90, [Percocet kg, Q4H, 5/325] PRN Pain, Start date: 11/10/17 10:32:00 CHA[employer]MAN PRESIDENT AND [employer] EXEC[employer]IVE OFFICER, Duration: 30 day, Stop date: 12/10/17 10:31:00 CHA[employer]MAN PRESIDENT AND [employer] EXECUTIVE OFFICER Morphine 2016-11 No Notes: Memoria 2- (Same l 16:32: as:MORPhin Chris 00 e Sulfate) Zofran 2016-11 No Notes: Memoria 2- (Same as: l 16:32: Gabby) Chris MEDICATION WASTE Product Size: 4 mg Product Wasted: ___ mg Acetaminoph 2016-11 No 2 tab, Vipin minnie en 325 MG / Route: PO, l Oxycodone 16:32: Drug Form: Wili rmann Hydrochlori 00 TAB, de 5 MG Dosing Oral Tablet Weight 90, [Percocet kg, Q4H, 5/325] PRN Pain, Start date: 11/10/17 10:32:00 CHAIRMAN PRESIDENT AND [employer] EXECUTIVE OFFICER, Duration: 30 day, Stop date: 12/10/17 10:31:00 CHA[employer]MAN PRESIDENT [employer] EXEC[employer]IVE OFFICER Morphine 2016-11 No Notes: Memoria 2-29 (Same l 16:32: as:MORPhin [place] 00 e Sulfate) diphenhydrA 2016-11 No Route: IV, Memoria MINE (ANES) Drug form: l 16:23: INJ, ONCE, Stop date: 11/10/17 10:23:00 [employer]MAN [employer]IVE OFFICER diphenhydrA 2016-11 No Route: IV, Memoria MINE (ANES) 2- Drug form: l 16:23: INJ, ONCE, Stop date: 11/10/17 10:23:00 [employer]MAN [employer]IDENT [employer]IVE OFFICER diphenhydrA 2016-11 No Route: IV, Memoria MINE (ANES) 2- Drug form: l 16:23: INJ, ONCE, Stop date: 11/10/17 10:23:00 [employer]MAN [employer]IDENT [employer]EC[employer]IVE OFFICER hydromorpho 2016-11 No Route: IV, Memoria ne (ANES) 2- Drug form: l 15:53: INJ, ONCE, Stop date: 11/10/17 9:53:00 [employer]MAN [employer]IDENT [employer]EC[employer]IVE OFFICER hydromorpho 2016-11 No Route: IV, Memoria ne (ANES) Drug form: l 15:53: INJ, ONCE, Stop date: 11/10/17 9:53:00 CHA[employer]MAN PRESIDENT AND [employer] EXEC[employer]IVE OFFICER hydromorpho 2016-11 No Route: IV, Memoria ne (ANES) Drug form: l 15:53: INJ, ONCE, Stop date: 11/10/17 9:53:00 CHA[employer]MAN PRESIDENT AND [employer] EXEC[employer]IVE OFFICER lidocaine 2016-11 No Route: IV, Me moria (ANES) 2- Drug form: l 15:43: INJ, ONCE, Stop date: 11/10/17 9:43:00 CHA[employer]MAN PRESIDENT AND [employer]EC[employer]IVE OFFICER lidocaine 2016-11 No Route: IV, Me moria (ANES) 2- Drug form: l 15:43: INJ, ONCE, Stop date: 11/10/17 9:43:00 CHAIRMAN PRESIDENT AND [employer] EXECUTIVE OFFICER lidocaine 2016-11 No Route: IV, Me moria (ANES) 2- Drug form: l 15:43: INJ, ONCE, Stop date: 11/10/17 9:43:00 CHAIRMAN PRESIDENT AND [employer]IE[employer] EXECUTIVE OFFICER ceFAZolin 2016-11 No Route: IV, Me moria (ANES) 2- Drug form: l 15:38: INJ, ONCE, Stop date: 11/10/17 9:38:00 CHA[employer]MAN PRESIDENT AND [employer]ECUTIVE OFFICER ondansetron 2016-11 No Route: IV, Memoria (ANES) 2- Drug form: l 15:38: INJ, ONCE, Stop date: 11/10/17 9:38:00 CHAIRMAN PRESIDENT AND [employer]EC[employer]IVE OFFICER dexamethaso 2016-11 No Route: IV, Memoria ne (ANES) 2- Drug form: l 15:38: INJ, ONCE, Stop date: 11/10/17 9:38:00 CHA[employer]MAN PRESIDENT AND [employer] EXECUTIVE OFFICER fentaNYL 2016-11 No Route: IV, Mem oria (ANES) 2 Drug form: l 15:38: INJ, ONCE, Stop date: 11/10/17 9:38:00 CHA[employer]MAN PRESIDENT AND [employer]EC[employer]IVE OFFICER propofol 2016-11 No Route: IV, Mem oria (ANES) Drug form: l 15:38: INJ, ONCE, Stop date: 11/10/17 9:38:00 CHA[employer]MAN [employer]IDENT AND [employer]EC[employer]IVE OFFICER famotidine 2016-11 No Route: IV, M emoria (ANES) Drug form: l 15:38: INJ, ONCE, Stop date: 11/10/17 9:38:00 CHA[employer]MAN PRESIDENT AND [employer]EC[employer]IVE OFFICER metoclopram 2016-11 No Route: IV, Memoria hola (ANES) Drug form: l 15:38: INJ, ONCE, Stop date: 11/10/17 9:38:00 CHAIRMAN PRESIDENT AND [employer]ECUTIVE OFFICER ceFAZolin 2016-11 No Route: IV, Me moria (ANES) Drug form: l 15:38: INJ, ONCE, Stop date: 11/10/17 9:38:00 CHA[employer]MAN PRESIDENT AND [employer]ECUTIVE OFFICER ondansetron 2016-11 No Route: IV, Memoria (ANES) 2- Drug form: l 15:38: INJ, ONCE, Stop date: 11/10/17 9:38:00 CHAIRMAN PRESIDENT AND [employer]ECUTIVE OFFICER dexamethaso 2016-11 No Route: IV, Memoria ne (ANES) 2 Drug form: l 15:38: INJ, ONCE, Stop date: 11/10/17 9:38:00 CHAIRMAN PRESIDENT AND [employer] EXECUTIVE OFFICER fentaNYL 2016-11 No Route: IV, Mem oria (ANES) 2- Drug form: l 15:38: INJ, ONCE, Stop date: 11/10/17 9:38:00 CHAIRMAN PRESIDENT AND [employer] EXECUTIVE OFFICER propofol 2016-11 No Route: IV, Mem oria (ANES) 2- Drug form: l 15:38: INJ, ONCE, Stop date: 11/10/17 9:38:00 CHAIRMAN PRESIDENT AND [employer]EC[employer]IVE OFFICER famotidine 2016-11 No Route: IV, M emoria (ANES) 2- Drug form: l 15:38: INJ, ONCE, Stop date: 11/10/17 9:38:00 CHAIRMAN PRESIDENT AND [employer]IE[employer] EXECUTIVE OFFICER metoclopram 2016-11 No Route: IV, Memoria hola (ANES) 2- Drug form: l 15:38: INJ, ONCE, Stop date: 11/10/17 9:38:00 [employer] ceFAZolin 2016-11 No Route: IV, Me moria (ANES) 2- Drug form: l 15:38: INJ, ONCE, Stop date: 11/10/17 9:38:00 [employer] ondansetron 2016-11 No Route: IV, Memoria (ANES) 2- Drug form: l 15:38: INJ, ONCE, Stop date: 11/10/17 9:38:00 [employer] dexamethaso 2016-11 No Route: IV, Memoria ne (ANES) Drug form: l 15:38: INJ, ONCE, Stop date: 11/10/17 9:38:00 [employer] fentaNYL 2016-11 No Route: IV, Mem oria (ANES) 2- Drug form: l 15:38: INJ, ONCE, Stop date: 11/10/17 9:38:00 [employer] propofol 2016-11 No Route: IV, Mem oria (ANES) 2- Drug form: l 15:38: INJ, ONCE, Stop date: 11/10/17 9:38:00 [employer] famotidine 2016-11 No Route: IV, M emoria (ANES) 2- Drug form: l 15:38: INJ, ONCE, Stop date: 11/10/17 9:38:00 [employer] metoclopram 2016-11 No Route: IV, Memoria hola (ANES) 2- Drug form: l 15:38: INJ, ONCE, Stop date: 11/10/17 9:38:00 [employer] midazolam 2016-11 No Route: IV, Me moria (ANES) 2- Drug form: l 15:33: SOLN, [place] 00 ONCE, Stop date: 11/10/17 9:33:00 [employer] midazolam 2016-11 No Route: IV, Me moria (ANES) 2-29 Drug form: l 15:33: SOLN, [place] 00 ONCE, Stop date: 11/10/17 9:33:00 CHAIRMAN PRESIDENT AND CHIEF EXECUTIVE OFFICER midazolam 2016-11 No Route: IV, Me moria (ANES) 2-29 Drug form: l 15:33: SOLN, Chris 00 ONCE, Stop date: 11/10/17 9:33:00 CHAIRMAN PRESIDENT AND CHIEF EXECUTIVE OFFICER Lactated 2016-11 No Route: IV, Mem oria Ringers 2-29 Total l Injection 14:43: Volume: Columba nn IV (ANES) 00 1,000, 1000 mL Start date: 11/10/17 8:43:00 CHAIRMAN PRESIDENT AND CHIEF EXECUTIVE OFFICER, Stop date: 11/10/17 9:43:00 CHAIRMAN PRESIDENT AND CHIEF EXECUTIVE OFFICER Lactated 2016-11 No Route: IV, Mem oria Ringers 2-29 Total l Injection 14:43: Volume: Columba nn IV (ANES) 00 1,000, 1000 mL Start date: 11/10/17 8:43:00 CHAIRMAN PRESIDENT AND CHIEF EXECUTIVE OFFICER, Stop date: 11/10/17 9:43:00 CHAIRMAN PRESIDENT AND CHIEF EXECUTIVE OFFICER Lactated 2016-11 No Route: IV, Mem oria Ringers 2-29 Total l Injection 14:43: Volume: Columba nn IV (ANES) 00 1,000, 1000 mL Start date: 11/10/17 8:43:00 CHAIRMAN PRESIDENT AND CHIEF EXECUTIVE OFFICER, Stop date: 11/10/17 9:43:00 CHAIRMAN PRESIDENT AND CHIEF EXECUTIVE OFFICER Calcium 2016-11 No 1,000 mL, Memor ia Chloride Rate: 25 l 0.0014 13:01: ml/hr, [place] MEQ/ML / 00 Infuse Potassium over: 40 Chloride hr, Route: 0.004 IV, Dosing MEQ/ML / Weight 90 Sodium kg, Total Chloride Volume: 0.103 1,000, MEQ/ML / Start Sodium date: Lactate 11/10/17 0.028 7:01:00 MEQ/ML CHAIRMAN PRESIDENT AND CHIEF EXECUTIVE OFFICER, Injectable Duration: Solution 30 day, Stop date: 12/10/17 7:00:00 CHAIRMAN PRESIDENT AND CHIEF EXECUTIVE OFFICER, 2.1, m2 Calcium 2016-11 No 1,000 mL, Memor ia Chloride Rate: 25 l 0.0014 13:01: ml/hr, [place] MEQ/ML / 00 Infuse Potassium over: 40 Chloride hr, Route: 0.004 IV, Dosing MEQ/ML / Weight 90 Sodium kg, Total Chloride Volume: 0.103 1,000, MEQ/ML / Start Sodium date: Lactate 11/10/17 0.028 7:01:00 MEQ/ML CHAIRMAN PRESIDENT AND CHIEF EXECUTIVE OFFICER, Injectable Duration: Solution 30 day, Stop date: 12/10/17 7:00:00 CHAIRMAN PRESIDENT AND CHIEF EXECUTIVE OFFICER, 2.1, m2 Calcium 2016- No 1,000 mL, Memor ia Chloride 2 Rate: 25 l 0.0014 13:01: ml/hr, [place] MEQ/ML / 00 Infuse Potassium over: 40 Chloride hr, Route: 0.004 IV, Dosing MEQ/ML / Weight 90 Sodium kg, Total Chloride Volume: 0.103 1,000, MEQ/ML / Start Sodium date: Lactate 11/10/17 0.028 7:01:00 MEQ/ML CHAIRMAN PRESIDENT AND CHIEF EXECUTIVE OFFICER, Injectable Duration: Solution 30 day, Stop date: 12/10/17 7:00:00 CHAIRMAN PRESIDENT AND CHIEF EXECUTIVE OFFICER, 2.1, m2 No known 2016-11 No No [...] MOUTH - [facility] TWICE A [facility] DAY [facility] Cefdinir Cefdinir Yes Ran TAKE 1 Com mon [place] CAPSULE BY [facility] MOUTH - [facility] EVERY [facility] HOURS [facility] DA[facility] [place] ProAir HFA ProAir HFA Yes Ran INHALE 1 Common [place] TO 2 [facility] PUFF(S) BY - [facility] MOUTH [facility] EVERY 4 TO [facility] 6 HR Medical NEEDED-[facility] Center EZING AND BEFORE SPORTS- OK FOR SCHOOL Mucinex DM Mucinex DM Yes Ran 1 tablet Common [place] as needed [facility] - [facility] Vital Signs Vital Name Observation Time Observation Value Comments Source Systolic blood 2022-10-25 15:58:00 122 mm[Hg] Univer sity of pressure [facility] Diastolic blood 2022-10-25 15:58:00 83 mm[Hg] Unive rsity of pressure [facility] Heart rate 2022-10-25 15:58:00 72 /min Universi ty [facility] Body temperature 2022-10-25 15:58:00 37.44 Brandee [facility] Res[facility] rate 2022-10-25 15:58:00 18 /min [facility] Body height 2022-10-25 15:58:00 175.3 cm Universi ty [facility] Body weight 2022-10-25 15:58:00 [facility] 2022-10-25 15:58:00 38.97 kg/m2 [facility] Oxygen saturation in 2022-10-25 15:58:00 100 /min [facility] Arterial blood by [facility] Pulse oximetry Branch Systolic (mm Hg) 2019-04-12 14:30:00 Vipin rial [place] Diastolic (mm Hg) 2019-04-12 14:30:00 Mem orial Chris Respitory Rate 2019-04-12 14:30:00 Memori al [place] Systolic (mm Hg) 2019-04-12 14:15:00 Vipin rial Chris Diastolic (mm Hg) 2019-04-12 14:15:00 Mem orial Chris Respitory Rate 2019-04-12 14:15:00 Memori al [place] Respitory Rate 2019-04-12 14:00:00 Memori al [place] Systolic (mm Hg) 2019-04-12 14:00:00 Vipin rial [place] Diastolic (mm Hg) 2019-04-12 14:00:00 Mem orial [place] BMI Calculated 2019-04-10 20:08:00 Memori al Chris Weight 2019-04-10 20:08:00 [facility] Height 2019-04-10 20:08:00 175.26 cm [facility] [place] Respitory Rate 2017-11-10 18:45:00 Memori al [place] Systolic (mm Hg) 2017-11-10 18:45:00 Vipin rial [place] Diastolic (mm Hg) 2017-11-10 18:45:00 Mem orial [place] Systolic (mm Hg) 2017-11-10 18:30:00 Vipin rial [place] Diastolic (mm Hg) 2017-11-10 18:30:00 Mem orial [place] Respitory Rate 2017-11-10 18:30:00 Memori al [place] Systolic (mm Hg) 2017-11-10 18:10:00 Vipin rial [place] Diastolic (mm Hg) 2017-11-10 18:10:00 Mem orial [place] Respitory Rate 2017-11-10 18:10:00 Memori al [place] Weight 2017-11-08 17:00:00 [facility] Chris BMI Calculated 2017-11-08 17:00:00 Memori al [place] Height 2017-11-08 17:00:00 172.72 cm [facility] [place] Procedures Procedure Date / Time Performing Clinician Source Performed POCT MOLECULAR STREP 2022-10-25 16:13:00 Unknown, Attending [facility] Cerebral Arachnoid cyst 2004-11-13 00:00:00 Vipin rial Chris Reconstruction of [facility]a nn anterior cruciate ligament of knee joint Plan of Care Planned Activity Planned Date Details Comments Source Future Scheduled 2022-10-31 [facility] 14:46:29 [code = COVID-19 VACCINE (#1)] Future Scheduled 2022-10-31 Screening [facility] Test 14:46:29 Chlamydia trachomatis (procedure) [code = 282053172] Future Scheduled 2022-10-31 INFLUENZA VACCINE [facility] Test 14:46:29 [code = INFLUENZA VACCINE] Future Scheduled 2022-10-31 [facility] Test 14:46:29 malignant neoplasm of cervix (procedure) [code = 921378468] Future Scheduled 2022-10-29 COVID-19 [facility]ACCINE (#1) [facility] 08:05:34 [code = COVID-19 VACCINE (#1)] Future Scheduled 2022-10-29 Screening [facility] Test 08:05:34 Chlamydia trachomatis (procedure) [code = 570343465] Future Scheduled 2022-10-29 INFLUENZA VACCINE [facility] Test 08:05:34 [code = INFLUENZA VACCINE] Future Scheduled 2022-07-15 [facility]ZA VACCINE [facility] Test 14:47:35 [code = INFLUENZA VACCINE] Future Scheduled 2022-07-15 HEPATITIS B VACCINES [facility] Test 14:47:35 (1 of 3 - 3-dose series) [code = HEPATITIS B VACCINES (1 of 3 - 3-dose series)] Future Scheduled 2022-07-15 COVID-19 VACCINE (#1) [facility] Test 14:47:35 [code = COVID-19 VACCINE (#1)] Future Scheduled 2022-07-15 Screening for [facility] Test 14:47:35 Chlamydia trachomatis (procedure) [code = 758244874] Encounters Start End Encounter Admission Attending Care Care Encounter Source Date/Time Date/Time Type Type Clinicians Facility Department ID 2022-10-25 2022-10-25 Outpatient R [facility] [id number] Univers 09:40:00 10:31:08 CECY winter [facility] 2022-10-25 2022-10-25 Cecy Chatman [facility] [id number] Univers 09:40:00 10:31:08 Care Unknown, [facility]ALTH [id number] ity of [place] 4.2.7.2.686 Job as DEVAUGHN?BLEA [id number] [address]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 2021-11-24 2021-11-24 Letter DONOVAN Hoff 1.2.840.114 [id number] Univers 00:00:00 00:00:00 (Out) Isha JERRY [id number] it y of [facility] 4.2.7.2.686 Job as [id number] [address] 2021-11-22 2021-11-22 Outpatient R [facility] [id number] Univers 20:30:00 20:53:09 CLARISSA winter o f [facility] 2021-11-22 2021-11-22 Laboratory Only, Ang Db Test [facility] 1.2.8 40.114 [id number] Univers 20:30:00 20:45:00 Only Clarissa Wiseman [facility] [id number] [facility] 4.2.7.2.686 Job as DEVAUGHN?BLEA [id number] [address]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 2021-11-22 2021-11-22 Letter Doctor DONOVAN [id number] Univers 00:00:00 00:00:00 (Out) Unassigned, CLARITZA [id number] ity of [place] [facility] 4.2.7.2.686 Job as [id number] [address] 2021-11-22 2021-11-22 Letter Doctor DONOVAN 1.2.840.114 [id number] Univers 00:00:00 00:00:00 (Out) Unassigned, CLARITZA 350.1.13.10 ity of [place] [facility] 4.2.7.2.686 Job as [id number] [address] 2019-10-14 2019-10-15 Outpt Diag nullFlavo [facility] [id number] Memoria 14:51:00 05:59:00 Services r Outpatient 02 [facility] 2019-10-14 2019-10-15 Outpt Diag nullFlavo [facility] [id number] Memoria 14:51:00 05:59:00 Services r Outpatient 02 [facility] 2019-10-14 2019-10-14 Outpatient Elayne MHOIP MHOIP [id number] 08:51:00 23:59:00 Haider Celeste 2019-04-12 2019-04-[address] [facility] [id number] Memoria 10:44:00 14:47:00 Surgery [facility] 01 [facility] 2019-04-12 2019-04-12 Day [facility] [id number] Memoria 10:44:00 14:47:00 Surgery r [place] 01 [facility] 2019-04-12 2019-04-12 Outpatient [place], MHPL MHPL [id number] 05:44:00 09:47:00 Hero Martinez 2019-04-12 2019-04-12 Outpatient MHBL MHBL [id number] MHBL 05:44:00 05:44:00 2018-10-22 2018-10-22 [id number] Common 14:00:00 14:00:00 [facility] 2018 [facility] [id number] Common 15:00:00 15:00:00 t [facility] 2017-11-10 2017-11-[address] [facility] [id number] Memoria 12:03:00 19:00:00 Surgery r [place] 00 l [facility] 2017-11-10 2017-11-10 Day [facility] [id number] Memoria 12:03:00 19:00:00 Surgery r [place] 00 l [facility] 2017-11-10 2017-11-[address] [place] [id number] 06:03:00 13:00:00 Hero 00 Juan 2017-10-13 2017-10-13 Outpatient [facility] [id number] Memoria 00:40:00 05:59:00 franchesca Perez 34 l [facility] 2017-10-13 2017-10-13 Outpatient [facility] [id number] Memoria 00:40:00 05:59:00 franchesca Perez 34 l [facility] 2017-10-12 2017-10-[address] [id number] 18:40:00 23:59:00 Hero Martinez Results Test Description Test Time Test Comments Results Result Comments Source POCT MOLECULAR STREP 2022-10-25 16:21:32 Test Item Value Reference Range Interpretation Comme nts POCT Molecular Strep (test code = 08510-3) Negative Negative Lab Interpretation (test code = 06966-7) [facility] [id number] 10:58:00 Test Item Value Reference Range Interpretation Comments U Preg (test code = U Negative (04/12/19 5:58 Preg) AM) [facility] [id number] 10:58:00 Test Item Value Reference Range Interpretation Comments U Preg (test code = U Negative (04/12/19 5:58 Preg) AM) [facility] [id number] 10:58:00 Test Item Value Reference Range Interpretation Comments U Preg (test code = U Negative (04/12/19 5:58 Preg) AM) [facility]annURINE [id number] 13:02:00 Test Item Value Reference Range Interpretation Comments U Preg (test code = U Negative (11/10/17 7:02 Preg) AM) [facility]INE [id number] 13:02:00 Test Item Value Reference Range Interpretation Comments U Preg (test code = U Negative (11/10/17 7:02 Preg) AM) [facility] [id number] 13:02:00 Test Item Value Reference Range Interpretation Comments U Preg (test code = U Negative (11/10/17 7:02 Preg) AM) [facility]
[2022-10-31 16:54] LABS: Absolute Lymphocytes (CBC) 1.9 K/uL (0.7-4.9); Hematocrit 33.1 % (36.0-45.0); Lymphocytes % 20.8 % (15.3-44.8); MCV 79.1 fL (80-100); MPV 7.2 fL (7.6-11.3); RBC Red Blood Cell Count 4.19 M/uL (3.86-4.86)
[2022-10-31] MEDS ORDERED: ONDANSETRON 4 MG/2 ML VIAL ONE (16:54)
[2022-10-31] MEDS ORDERED: MORPHINE 4 MG/ML SYR ONE (16:54)
[2022-10-31] MEDS ORDERED: NA CHLORIDE 0.9% 1,000 ML ONE ×2 (16:54→17:38)
[2022-10-31 17:10] LABS: Urine Blood Negative (Negative); Urine Glucose Negative (Negative); Urine Protein Negative (Negative); Urine Specific Gravity >=1.030 (1.005-1.030); Urine pH 5.5 (5.0-7.0)
[2022-10-31 17:22] LABS: Urine Specific Gravity/Preg >1.030 (1.005-1.030)
[2022-10-31 17:33] LABS: Albumin 3.2 g/dL (3.4-5.0); Bilirubin Total 0.2 mg/dL (0.2-1.0); Potassium 3.7 mmol/L (3.5-5.1); Protein, Total 7.2 g/dL (6.4-8.2)
[2022-10-31] MEDS ORDERED: FENTANYL CITR 100 MCG/2 ML ONE (18:27)
--- NOTE | 2022-10-31 18:41 | RAD REPORT ---
EXAM DESCRIPTION: CT - Abdomen Pelvis W Contrast - 10/31/2022 6:31 pm CLINICAL HISTORY: Abdominal pain COMPARISON: October 30, 2022 TECHNIQUE: Computed axial tomography of the abdomen pelvis was obtained. 100 cc Isovue-300 was admin istered intravenously. Oral contrast was not requested which limits evaluation of bowel and appendix All CT scans are performed using dose optimization technique as appropriate and may include automated exposure control or mA/KV adjustment according to patient size. FINDINGS: The liver, spleen, pancreas, adrenal and kidneys appear unremarkable. There is no evidence of diverticulitis. Normal appendix. No adnexal mass. Retroverted uterus TOOL POLISHER shunt in place IMPRESSION: No acute abnormality is displayed.
--- NOTE | 2022-10-31 18:56 | ER ---
Nurse's Notes [facility] Name: Felicita Tolentino Age: 22 yrs Sex: Female : 2000 Arrival Date: 10/31/2022 Time: 14:47 Bed 7 Private MD: Jese Naranjo E Diagnosis: Abdominal pain, unspecified Presentation: 10/31 16:08 Chief complaint: Patient states: right lower quadrant pain that is significantly worse [facility] than yesterday; i was here yesterrday and had CT and blood work and they said everything was normal but it worse. Coronavirus screen: Vaccine status: Patient reports receiving the 2nd dose of the covid vaccine. Client denies travel out of the [place] in the last 14 days. Ebola Screen: Patient negative for fever greater than or equal to 101.5 degrees Fahrenheit, and additional compatible Ebola Virus Disease symptoms Patient denies exposure to infectious person. Patient denies travel to an Ebola-affected area in the 21 days before illness onset. Initial Sepsis Screen: Does the patient meet any 2 criteria? No. Patient's initial sepsis screen is negative. Does the patient have a suspected source of infection? No. Patient's initial sepsis screen is negative. Risk Assessment: Do you want to hurt yourself or someone else? Patient reports no desire to harm self or others. Onset of symptoms was October 30, 2022. 16:08 Method Of Arrival: Ambulatory [facility] 16:08 Acuity: YASMINE 3 5 Triage Assessment: 16:11 General: Appears uncomfortable, well groomed, well developed, well nourished, Behavior [facility] is calm, cooperative, appropriate for age. Pain: Complains of pain in abdomen. GI: Reports constipation, nausea. 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 - Social history:: Smoking status: Patient denies any tobacco usage or history of. Screenin:00 [facility] ED Fall Risk Assessment (Adult) History of falling in the last 3 months, vg1 including since admission No falls in past 3 months (0 pts) Confusion or Disorientation No (0 pts) Intoxicated or Sedated No (0 pts) Impaired Gait No (0 pts) Mobility Assist Device Used No (0 pt) Altered Elimination No (0 pt) Score/Fall Risk Level 0 - 2 = Low Risk Oriented to surroundings, Maintained a safe environment, Educated pt \T\ family on fall prevention, incl call for assistance when getting out of bed, Assessed \T\ reinforced patient's understanding of fall precautions. Abuse screen: Denies threats or abuse. Nutritional screening: No deficits noted. Tuberculosis screening: No symptoms or risk factors identified. Assessment: 17:21 General: Appears in no apparent distress. uncomfortable, Behavior is calm, cooperative. vg1 Pain: Complains of pain in umbilical area and right lower quadrant Pain currently is 4 out of 10 on a pain scale. at worst was 7 out of 10 on a pain scale. Pain began 2-3 days ago. Neuro: Level of Consciousness is awake, alert, obeys commands, Oriented to person, place, time, situation. Cardiovascular: Patient's skin is warm and dry. Respiratory: Airway is patent Respiratory effort is even, unlabored. GI: Abdomen is round non-distended, Last BM was October 28, 2022. Bowel sounds present X 4 quads. Abdomen is tender to palpation in right lower quadrant Reports constipation, nausea, Patient currently denies diarrhea, vomiting. : No signs and/or symptoms were reported regarding the genitourinary system. EENT: No signs and/or symptoms were reported regarding the EENT system. Derm: Skin is pink, warm \T\ dry. Musculoskeletal: Circulation, motion, and sensation intact. 18:20 Reassessment: pt transported to CT via stretcher. vg1 18:48 Reassessment: Patient appears in no apparent distress at this time. Patient and/or vg1 family updated on plan of care and expected duration. Pain level reassessed. Patient is alert, oriented x 3, equal unlabored respirations, skin warm/dry/pink. 19:28 Reassessment: Patient appears in no apparent distress at this time. Patient and/or jb4 family updated on plan of care and expected duration. Pain level reassessed. Patient is alert, oriented x 3, equal unlabored respirations, skin warm/dry/pink. Patient states feeling better. Vital Signs: 16:08 BP 135 / 75; Pulse 76; Resp 18; Temp 98.6; Pulse Ox 100% ; Weight 117.93 kg; Height 5 5 ft. 9 in. (175.26 cm); Pain 10/10; 17:00 BP 132 / 72; Pulse 78; Resp 15; Pulse Ox 100% on R/A; vg1 18:30 BP 128 / 71; Pulse 70; Resp 15; Pulse Ox 100% on R/A; vg1 16:08 Body Mass Index 38.39 (117.93 kg, 175.26 cm) [facility] ED Course: 14:47 Patient arrived in ED. mr 14:47 Jese Naranjo MD is Private Physician. mr 14:49 Mandy Cuba FNP-C [facility]. snw 14:49 Maik Norton DO is Attending Physician. snw 16:11 Triage completed. 5 16:11 Arm band placed on right wrist. 5 16:47 Kusum Meadows, RN is Primary Nurse. vg1 17:00 Patient has correct armband on for positive identification. Bed in low position. Call vg1 light in reach. Side rails up X 1. Adult w/ patient. 17:00 Inserted saline lock: 20 gauge in right antecubital area, using aseptic technique. vg1 ,using aseptic technique. completed by ED Staff. 18:32 CT Abd/Pelvis - IV Contrast Only In Process Unspecified. EDMS 18:48 Jese Naranjo MD is Referral Physician. snw 19:28 No provider procedures requiring assistance completed. IV discontinued, intact, jb4 bleeding controlled, No redness/swelling at site. Pressure dressing applied. Administered Medications: 16:56 Drug: NS 0.9% 1000 ml Route: IV; Rate: 1 bolus; Site: left antecubital; ko1 19:29 Follow up: Response: No adverse reaction; IV Status: Order to discontinue infusion; jb4 Order to discontinue infusion, pt discharged.; IV Intake: 900ml 16:57 Drug: Zofran (Ondansetron) 4 mg Route: IVP; Site: left antecubital; ko1 18:19 Follow up: Response: No adverse reaction vg1 17:17 Drug: morphine 4 mg Route: IVP; Infused Over: 4 mins; Site: right antecubital; ko1 18:19 Follow up: Response: No adverse reaction; Marked relief of symptoms 1 17:57 Drug: NS 0.9% 1000 ml Route: IV; Rate: 1 bolus; Site: right antecubital; vg1 19:29 Follow up: Response: No adverse reaction; IV Status: Order to discontinue infusion; jb4 Order to discontinue infusion,pt discharged.; IV Intake: 800ml 18:44 Drug: fentaNYL (PF) 25 mcg Route: IVP; Site: right antecubital; vg1 Medication: 17:00 VIS not applicable for this client. vg1 Intake: 19:29 IV: 800ml; Total: 800ml. jb4 19:29 IV: 900ml; Total: 1700ml. jb4 Outcome: 18:56 Discharge ordered by . nhan 19:28 Discharged to home ambulatory, with family. jb4 19:28 Condition: stable 19:28 Discharge instructions given to patient, Instructed on discharge instructions, follow up and referral plans. medication usage, Demonstrated understanding of instructions, follow-up care, medications, Prescriptions given X 2. 19:30 Patient left the ED. jb4 Signatures: Dispatcher [employer] EDMS Mandy Cuba, INVESTMENT ADVISOR-C INVESTMENT ADVISOR-Csnw Vanessa Atwood James, RN RN jb4 Kusum Meadows, RN RN vg1 Jasmine Vargas, RN RN jh5 Maria Victoria Atkins, RN RN ko1
--- NOTE | 2022-10-31 18:56 | EDPHYS ---
Physician Documentation [facility] Name: Felicita Tolentino Age: 22 yrs Sex: Female : 2000 Arrival Date: 10/31/2022 Time: 14:47 Bed 7 Private MD: Jese Naranjo E ED Physician Maik Norton HPI: 10/31 16:45 This 22 yrs old Black Female presents to ER via Ambulatory with complaints of Abdominal snw Pain, Nausea. 16:45 The patient presents with abdominal pain right lower quadrant. Onset: The snw symptoms/episode began/occurred acutely. The symptoms do not radiate. Associated signs and symptoms: Pertinent positives: nausea and vomiting. The symptoms are described as constant, vague. Severity of pain: At its worst the pain was moderate severe. The patient has experienced a previous episode, yesterday. The patient has been recently seen at the [facility], yesterday, for similar complaints labs were performed, an ultrasound was performed, CT scan was performed, was given a prescription for pain medications, was given a prescription for an antiemetic. 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 - Social history:: Smoking status: Patient denies any tobacco usage or history of. ROS: 16:45 Eyes: Negative for injury, pain, redness, and discharge, ENT: Negative for injury, snw pain, and discharge, Neck: Negative for injury, pain, and swelling, Cardiovascular: Negative for chest pain, palpitations, and edema. 16:45 Respiratory: Negative for shortness of breath, cough, wheezing, and pleuritic chest pain. 16:45 Back: Negative for injury and pain, : Negative for injury, bleeding, discharge, and swelling, MS/Extremity: Negative for injury and deformity, Skin: Negative for injury, rash, and discoloration, Neuro: Negative for headache, weakness, numbness, tingling, and seizure, Psych: Negative for depression, anxiety, suicide ideation, homicidal ideation, and hallucinations. 16:45 Constitutional: Positive for malaise, poor PO intake. 16:45 Abdomen/GI: Positive for abdominal pain, nausea, vomiting. Exam: 16:44 Constitutional: This is a well developed, well nourished patient who is awake, alert, snw and in no acute distress. Head/Face: Normocephalic, atraumatic. Eyes: Pupils equal round and reactive to light, extra-ocular motions intact. Lids and lashes normal. Conjunctiva and sclera are non-icteric and not injected. Cornea within normal limits. Periorbital areas with no swelling, redness, or edema. ENT: Nares patent. No nasal discharge, no septal abnormalities noted. Tympanic membranes are normal and external auditory canals are clear. Oropharynx with no redness, swelling, or masses, exudates, or evidence of obstruction, uvula midline. Mucous membranes moist. Neck: Trachea midline, no thyromegaly or masses palpated, and no cervical lymphadenopathy. Supple, full range of motion without nuchal rigidity, or vertebral point tenderness. No Meningismus. Chest/axilla: Normal chest wall appearance and motion. Nontender with no deformity. No lesions are appreciated. Cardiovascular: Regular rate and rhythm with a normal S1 and S2. No gallops, murmurs, or rubs. Normal PMI, no JVD. No pulse deficits. Respiratory: Lungs have equal breath sounds bilaterally, clear to auscultation and percussion. No rales, rhonchi or wheezes noted. No increased work of breathing, no retractions or nasal flaring. 16:44 Back: No spinal tenderness. No costovertebral tenderness. Full range of motion. Skin: Warm, dry with normal turgor. Normal color with no rashes, no lesions, and no evidence of cellulitis. MS/ Extremity: Pulses equal, no cyanosis. Neurovascular intact. Full, normal range of motion. Neuro: Awake and alert, GCS 15, oriented to person, place, time, and situation. Cranial nerves II-XII grossly intact. Motor strength 5/5 in all extremities. Sensory grossly intact. Cerebellar exam normal. Normal gait. Psych: Awake, alert, with orientation to person, place and time. Behavior, mood, and affect are within normal limits. 16:44 Abdomen/GI: Inspection: abdomen appears normal, obese Bowel sounds: normal, Palpation: moderate abdominal tenderness, in the right lower quadrant, Indicators: McBurney's point is tender, rebound tenderness. Vital Signs: 16:08 BP 135 / 75; Pulse 76; Resp 18; Temp 98.6; Pulse Ox 100% ; Weight 117.93 kg; Height 5 5 ft. 9 in. (175.26 cm); Pain 10/10; 17:00 BP 132 / 72; Pulse 78; Resp 15; Pulse Ox 100% on R/A; vg1 18:30 BP 128 / 71; Pulse 70; Resp 15; Pulse Ox 100% on R/A; vg1 16:08 Body Mass Index 38.39 (117.93 kg, 175.26 cm) [facility] MDM: 16:10 Patient medically screened. snw 19:01 Data reviewed: vital signs, nurses notes. Data interpreted: Pulse oximetry: on room air snw is 100 %. Interpretation: normal. Counseling: I had a detailed discussion with the patient and/or guardian regarding: the historical points, exam findings, and any diagnostic results supporting the discharge/admit diagnosis, lab results, radiology results, the need for outpatient follow up, to return to the emergency department if symptoms worsen or persist or if there are any questions or concerns that arise at home. Response to treatment: There is no appreciated change of the patient's symptoms at this time. Special discussion: Based on the history and exam findings, there is no indication for further emergent testing or inpatient evaluation. I discussed with the patient/guardian the need to see the primary care provider for further evaluation of the symptoms. 10/31 16:16 Order name: CBC with Diff; Complete Time: 17:03 snw 10/31 16:16 Order name: CMP; Complete Time: 17:34 snw 10/31 16:16 Order name: CT Abd/Pelvis - IV Contrast Only; Complete Time: 18:42 snw 10/31 17:11 Order name: Urine Dipstick-Ancillary; Complete Time: 17:24 EDMS 10/31 17:15 Order name: Urine --Ancillary (enter results); Complete Time: 17:24 em1 10/31 16:56 Order name: Labs - recollect needed: green top please; Complete Time: 17:16 em1 Administered Medications: 16:56 Drug: NS 0.9% 1000 ml Route: IV; Rate: 1 bolus; Site: left antecubital; ko1 19:29 Follow up: Response: No adverse reaction; IV Status: Order to discontinue infusion; jb4 Order to discontinue infusion, pt discharged.; IV Intake: 900ml 16:57 Drug: Zofran (Ondansetron) 4 mg Route: IVP; Site: left antecubital; ko1 18:19 Follow up: Response: No adverse reaction vg1 17:17 Drug: morphine 4 mg Route: IVP; Infused Over: 4 mins; Site: right antecubital; ko1 18:19 Follow up: Response: No adverse reaction; Marked relief of symptoms vg1 17:57 Drug: NS 0.9% 1000 ml Route: IV; Rate: 1 bolus; Site: right antecubital; vg1 19:29 Follow up: Response: No adverse reaction; IV Status: Order to discontinue infusion; jb4 Order to discontinue infusion,pt discharged.; IV Intake: 800ml 18:44 Drug: fentaNYL (PF) 25 mcg Route: IVP; Site: right antecubital; vg1 Disposition: 19:12 Co-signature as Attending Physician, Maik Norton DO. ms3 19:12 Chart complete. ms3 19:13 Co-signature as Attending Physician, Maik Norton DO I was immediately available on-site ms3 in the Emergency Department for consultation in the care of the patient. Disposition Summary: 10/31/22 18:56 Discharge Ordered Location: Home snw Condition: Stable snw Diagnosis - Abdominal pain, unspecified snw Followup: snw - With: Jese Naranjo MD - When: 5 - 6 days - Reason: Recheck today's complaints, Continuance of care, Re-evaluation by your physician Followup: snw - With: Emergency Department - When: As needed - Reason: Worsening of condition Discharge Instructions: - Discharge Summary Sheet snw - Abdominal Pain, Adult snw - Colic snw Forms: - Medication Reconciliation Form snw - Thank You Letter snw - Antibiotic Education snw - Prescription Opioid Use snw Prescriptions: - promethazine 25 mg Oral Tablet - take 1 tablet by ORAL route every 6 hours As needed; 20 tablet; Refills: 0, snw Product Selection Permitted - dicyclomine 20 mg Oral Tablet - take 1 tablet by ORAL route 3 times per day; 30 tablet; Refills: 0, Product snw Selection Permitted Signatures: Dispatcher [employer] Mandy De Dios FNP-C SUPERINTENDENT CEMETERY-Csnw Leonel Cedeno em1 Kusum Meadows, RN RN vg1 Maik Norotn, DO [place] ms3 Jasmine Vargas, RN RN jh5 Maria Victoria Atkins, ALEC RN ko1 Kal Hidalgo RN jb4
[2022-10-31 20:04] VITALS: TEMP 98.6; O2SAT 100
[2022-10-31 20:07] VITALS: BP 128/71
== END 2022-10-31 19:30 | disposition home or self-care (01) ==
LOC: ER 14:44
DX: R10.31 Right lower quadrant pain (principal); Z98.2 Presence of cerebrospinal fluid drainage device
CPT/HCPCS: 85025; 36415; 81025; 81003; 80053; 74177; Q9967; J3010; J7030 ×2; J2405; 99284

== ENCOUNTER 2024-06-27 20:55 | Emergency (ER) | payer OTHER ==
[2024-06-27 21:35] LABS: Absolute Eosinophils 0.6 K/uL (0-0.5); Absolute Lymphocytes (CBC) 3.1 K/uL (0.7-4.9); Absolute Monocytes 0.5 K/uL (0.1-1.3); Absolute Neutrophil 3.8 K/uL (1.8-8.0); Basophils % 0.6 % (0-1.3); Eosinophils % 7.9 % (0-4.4); Hematocrit 37.7 % (36.0-45.0); Hemoglobin 12.1 g/dL (12.0-15.0); Lymphocytes % 38.5 % (15.3-44.8); MCH 27.8 pg (27.0-35.0); MCHC 32.2 g/dL (32.0-36.0); MCV 86.2 fL (80-100); MPV 7.4 fL (7.6-11.3); Monocytes % 5.9 % (3.3-12.3); Neutrophils % 47.1 % (41.7-73.7); Platelets 321 thou/uL (152-406); RBC Red Blood Cell Count 4.37 M/uL (3.86-4.86); Red Cell Distribution Width 14.4 % (12.1-15.2)
[2024-06-27] MEDS ORDERED: KETOROLAC 30 MG/ML INJ ONE (21:44)
[2024-06-27] MEDS ORDERED: FAMOTIDINE 20 MG/2 ML VIAL IV ONE (21:45)
[2024-06-27] MEDS ORDERED: MORPHINE 4 MG/ML SYR ONE (21:45)
[2024-06-27] MEDS ORDERED: NA CHLORIDE 0.9% 2,000 ML ONE (21:46)
[2024-06-27 22:13] LABS: Albumin 3.8 g/dL (3.4-5.0); Anion Gap 9.1 mEq/L (5.0-15.0); Bilirubin Total 0.2 mg/dL (0.2-1.0); Potassium 3.1 mEq/L (3.5-5.1); Protein, Total 7.8 g/dL (6.4-8.2)
--- NOTE | 2024-06-27 22:45 | RAD REPORT ---
EXAM DESCRIPTION: US - Abdomen Exam Limited - 06/27/2024 10:10 pm CLINICAL HISTORY: RUQ pain COMPARISON: Abdomen Exam Limited dated 10/30/2022 FINDINGS: The gallbladder demonstrates no gallstones. No pericholecystic fluid or gallbladder wall t hickening. The common bile duct is normal measuring 3 mm. The liver demonstrates no findings of intrahepatic biliary dilatation. IMPRESSION: Unremarkable examination.
--- NOTE | 2024-06-27 22:48 | RAD REPORT ---
EXAM DESCRIPTION: CTAbdomen Pelvis W Contrast - 06/27/2024 10:29 pm CLINICAL HISTORY: Abdominal pain. ABD PAIN COMPARISON: Abdomen Pelvis W Contrast dated 10/31/2022; Abdomen Pelvis W Contrast dated 10/30/20 22 TECHNIQUE: Biphasic CT imaging of the abdomen and pelvis was performed with 100 ml non-ionic IV cont rast. All CT scans are performed using dose optimization technique as appropriate and may include automated exposure control or mA/KV adjustment according to patient size. FINDINGS: The lung bases are clear. The liver, spleen, pancreas, adrenal glands and kidneys are within normal limits. No bowel obstruction, free air, free fluid or abscess. Catheter tubing is present in the abdomen term inating in the anterior intrapelvic region. The appendix is normal. No evidence of significant lymph adenopathy. No suspicious bony findings. IMPRESSION: No acute intra-abdominal or pelvic finding.
[2024-06-28] MEDS ORDERED: METOCLOPRAMIDE 10 MG/2mL INJ ONE (00:18)
[2024-06-28] MEDS ORDERED: MORPHINE 4 MG/ML SYR ONE (00:18)
[2024-06-28] MEDS ORDERED: DICYCLOMINE HCL 20 MG/2 ML AMP IM ONE (00:18)
[2024-06-28 00:45] LABS: Specific Gravity > 1.030 (1.005-1.030); Sqamous Epithelial <5 /HPF (None Seen); Urine Bacteria None Seen /HPF (<20); Urine Bilirubin NEGATIVE (Negative); Urine Blood Negative (Negative); Urine Clarity Clear (Clear); Urine Color Light-Yellow (Yellow); Urine Culture Reflex Order NOT NEEDED; Urine Glucose NEGATIVE (Negative); Urine Ketones NEGATIVE (Negative); Urine Micro Reflex YN NO BILL MICROSCOPIC; Urine Mucus Slight /HPF (None Seen); Urine Nitrite NEGATIVE (Negative); Urine Protein NEGATIVE (Negative); Urine RBC None Seen /HPF (None Seen); Urine Urobilinogen Normal (Normal); Urine WBC <5 /HPF (<5); Urine pH 6.5 (5.0-7.0)
--- NOTE | 2024-06-28 00:54 | EDPHYS ---
Physician Documentation [facility] Name: Felicita Tolentino Age: 23 yrs Sex: Female : 2000 Arrival Date: 06/27/2024 Time: 20:55 Bed 14 Private MD: ED Physician Vincent Sharpe HPI: 06/27 21:00 This 23 yrs old Black Female presents to ER via Unassigned with complaints of Abdominal sp4 Pain. 06/28 04:11 23-year-old female presents with acute onset upper abdominal pain associated with sp4 nausea. 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 - Infectious Disease History:: Denies. - Social history:: Smoking status: Patient denies any tobacco usage or history of. - Family history:: not pertinent. ROS: 06/28 04:11 Constitutional: Negative for fever, chills, and weight loss, positive upper abdominal sp4 pain, positive nausea All other systems are negative, Exam: 04:11 Constitutional: This is a well developed, well nourished patient who is awake, alert, sp4 and in no acute distress. Head/Face: Normocephalic, atraumatic. Eyes: Pupils equal round and reactive to light, extra-ocular motions intact. Lids and lashes normal. Conjunctiva and sclera are not injected. Cornea within normal limits. Periorbital areas with no swelling, redness, or edema. ENT: Nares patent. No nasal discharge, no septal abnormalities noted. Tympanic membranes are normal and external auditory canals are clear. Oropharynx with no redness, swelling, or masses, exudates, or evidence of obstruction, uvula midline. Mucous membranes moist. Neck: Trachea midline, no thyromegaly or masses palpated, and no cervical lymphadenopathy. Supple, full range of motion without nuchal rigidity, or vertebral point tenderness. Chest/axilla: Normal chest wall appearance and motion. Nontender with no deformity. No lesions are appreciated. Cardiovascular: Regular rate and rhythm with a normal S1 and S2. No gallops, murmurs, or rubs. Normal PMI, no JVD. No pulse deficits. Respiratory: Lungs have equal breath sounds bilaterally, clear to auscultation and percussion. No rales, rhonchi or wheezes noted. No increased work of breathing, no retractions or nasal flaring. Abdomen/GI: Soft, with normal bowel sounds. No distension or tympany. No guarding or rebound. Positive upper abdominal tenderness, right upper quadrant tenderness Back: No spinal tenderness. No costovertebral tenderness. Skin: Warm, dry with normal turgor. Normal color with no rashes, no lesions, and no evidence of cellulitis. MS/ Extremity: Pulses equal, no cyanosis. Neurovascular intact. Full, normal range of motion. Neuro: Awake and alert, GCS 15, oriented to person, place, time, and situation. Cranial nerves II-XII grossly intact. Motor strength 5/5 in all extremities. Sensory grossly intact. Psych: Awake, alert, with orientation to person, place and time. Behavior, mood, and affect are within normal limits Vital Signs: 06/27 21:09 BP 134 / 76; Pulse 74; Resp 18; Temp 98.4(O); Pulse Ox 100% ; Weight 122.47 kg; Height mb9 5 ft. 9 in. ; Pain 4/10; 21:30 BP 127 / 69; Pulse 78; Resp 17; Pulse Ox 100% on R/A; Pain 4/10; rg5 23:30 BP 123 / 70; Pulse 77; Resp 17; Temp 98; Pulse Ox 100% on R/A; Pain 0/10; 5 06/28 00:30 BP 126 / 77; Pulse 77; Resp 17; Temp 98; Pulse Ox 99% on R/A; 5 00:51 BP 109 / 69; Pulse 77; Resp 17; Temp 98; Pulse Ox 99% on R/A; 5 06/27 21:09 Body Mass Index 39.87 (122.47 kg, 175.26 cm) [facility] 06/27 21:09 Pain Scale: Adult 9 21:30 Pain Scale: Adult 5 23:30 Pain Scale: Adult 5 [place] Coma Score: 06/27 21:30 Eye Response: spontaneous(4). Motor Response: obeys commands(6). Verbal Response: rg5 oriented(5). Total: 15. 06/28 04:11 Eye Response: spontaneous(4). Motor Response: obeys commands(6). Verbal Response: sp4 oriented(5). Total: 15. MDM: 06/27 22:43 Patient medically screened. sp4 06/28 00:52 ED course: EXAM DESCRIPTION: US - Abdomen Exam Limited - 06/27/2024 10:10 pm CLINICAL sp4 HISTORY: RUQ pain COMPARISON: Abdomen Exam Limited dated 10/30/2022 FINDINGS: The gallbladder demonstrates no gallstones. No pericholecystic fluid or gallbladder wall thickening. The common bile duct is normal measuring 3 mm. The liver demonstrates no findings of intrahepatic biliary dilatation. IMPRESSION: Unremarkable examination. . ED course: EXAM DESCRIPTION: CTAbdomen Pelvis W Contrast - 06/27/2024 10:29 pm CLINICAL HISTORY: Abdominal pain. ABD PAIN COMPARISON: Abdomen Pelvis W Contrast dated 10/31/2022; Abdomen Pelvis W Contrast dated 10/30/2022 TECHNIQUE: Biphasic CT imaging of the abdomen and pelvis was performed with 100 ml non-ionic IV contrast. All CT scans are performed using dose optimization technique as appropriate and may include automated exposure control or mA/KV adjustment according to patient size. FINDINGS: The lung bases are clear. The liver, spleen, pancreas, adrenal glands and kidneys are within normal limits. No bowel obstruction, free air, free fluid or abscess. Catheter tubing is present in the abdomen terminating in the anterior intrapelvic region. The appendix is normal. No evidence of significant lymphadenopathy. No suspicious bony findings. IMPRESSION: No acute intra-abdominal or pelvic finding. 04:12 Differential Diagnosis altered mental status, sepsis, flu. Data reviewed: vital signs, sp4 nurses notes, old medical records, lab test result(s), radiologic studies, CT scan, ultrasound. Consideration of Admission/Observation Escalation of care including admission/observation considered. ED course: No acute intra-abdominal or pelvic finding. Patient stable for discharge home . 06/27 21:00 Order name: CBC with Diff; Complete Time: 23:15 sp4 06/27 21:00 Order name: CMP; Complete Time: 23:15 sp4 06/27 21:00 Order name: Lipase; Complete Time: 23:15 sp4 06/27 21:39 Order name: Test, Serum; Complete Time: 23:15 sp4 06/27 23:16 Order name: Urinalysis W/Microscopic; Complete Time: 00:50 sp4 06/27 21:39 Order name: CT Abd/Pelvis - IV Contrast Only; Complete Time: 23:15 sp4 06/27 21:40 Order name: US Abdomen Limited; Complete Time: 23:15 sp4 06/27 21:00 Order name: IV Saline Lock; Complete Time: : sp4 06/27 21:00 Order name: Labs collected and sent; Complete Time: : sp4 Administered Medications: 00:55 Discontinued: ns 0.9% 1000 ml IV at 125 ml/hr continuous rg5 06/27 21:30 Drug: NS 0.9% IV 1000 ml IV at 1 bolus Per protocol; 1000 mL bolus Route: IV; Rate: 1 rg5 bolus; Site: right antecubital; 06/28 00:33 Follow up: IV Status: Completed infusion; IV Intake: 1000ml [facility] 06/27 21:52 Drug: Ketorolac IVP 30 mg IVP once Route: IVP; Site: right antecubital; rg5 06/28 00:29 Follow up: Response: No adverse reaction; Pain is decreased 5 06/27 21:52 Drug: morphine IVP or IV 4 mg IVP once over 4 mins Route: IVP; Infused Over: 4 mins; rg5 Site: right antecubital; 06/28 00:30 Follow up: Response: No adverse reaction; Pain is decreased 5 06/27 21:52 Drug: Famotidine IVP 20 mg IVP once; dilute with 10 mL 0.9% NaCl; give over 2 minutes rg5 Route: IVP; Site: right antecubital; 06/28 00:30 Follow up: Response: No adverse reaction 5 06/27 21:52 Drug: NS 0.9% IV 1000 ml IV at 1 bolus Per protocol; 1000 mL bolus Route: IV; Rate: 1 rg5 bolus; Site: right antecubital; 06/28 00:29 Follow up: Response: No adverse reaction; IV Status: Completed infusion rg5 00:13 Drug: NS 0.9% IV 1000 ml IV at 125 ml/hr continuous Route: IV; Rate: 125 ml/hr; Site: rg5 right antecubital; 00:56 Follow up: IV Status: Order to discontinue infusion; IV Intake: 100ml rg5 00:15 Drug: morphine IVP or IV 4 mg IVP once over 4 mins Route: IVP; Infused Over: 4 mins; rg5 Site: right antecubital; 00:55 Follow up: Response: No adverse reaction; Pain is decreased rg5 00:15 Drug: metoCLOPramide IVP 10 mg IVP once; over 1 to 2 minutes Route: IVP; Site: right rg5 antecubital; 00:54 Follow up: Response: No adverse reaction rg5 00:15 Drug: Dicyclomine IM 20 mg IM once Route: IM; Site: right deltoid; rg5 00:54 Follow up: Response: No adverse reaction rg5 Disposition Summary: 06/28/24 00:54 Discharge Ordered Notes: Location: Home sp4 Problem: new sp4 Symptoms: have improved sp4 Condition: Stable sp4 Diagnosis - Abdominal pain, Generalized sp4 Followup: sp4 - With: Private Physician - When: As needed - Reason: Discharge Instructions: - Discharge Summary Sheet sp4 - Abdominal Pain, Adult sp4 Forms: - Patient Portal Instructions sp4 Prescriptions: - Ibuprofen 800 mg Oral tablet - take 1 tablet ORAL route every 6 hours As needed PRN abdominal pain; 30 tablet; sp4 Refills: 0, Product Selection Permitted - Reglan 10 mg Oral tablet - take 1 tablet ORAL route every 6 hours PRN nausea; 30 tablet; Refills: 0, sp4 Product Selection Permitted - dicyclomine 20 mg Oral tablet - take 1 tablet ORAL route every 6 hours PRN nausea and abdominal pain; 40 sp4 tablet; Refills: 0, Product Selection Permitted Signatures: Dispatcher [employer] Vanessa Souza RN RN mb9 Vincent Sharpe MD MD sp4 Morales Wilson RN RN rg5 Corrections: (The following items were deleted from the chart) 06/27 21:01 21:01 CBC+H.LAB.BRZ ordered. EDMS EDMS 21:01 21:01 COMPREHENSIVE METABOLIC PANEL+C.LAB.BRZ ordered. EDMS EDMS 21:01 21:01 LIPASE+C.LAB.BRZ ordered. EDMS EDMS 21:40 21:40 Abdomen Limited+US.RAD.BRZ ordered. EDMS EDMS
--- NOTE | 2024-06-28 00:54 | ER ---
Nurse's Notes [facility] Name: Felicita Tolentino Age: 23 yrs Sex: Female : 2000 Arrival Date: 06/27/2024 Time: 20:55 Bed 14 Private MD: Diagnosis: Abdominal pain, Generalized Presentation: 06/27 21:09 Chief complaint: Patient states: "This morning, I started having abdominal pain and mb9 cramping along with N.". Coronavirus screen: Vaccine status: Patient reports receiving the 2nd dose of the covid vaccine. Ebola Screen: No symptoms or risks identified at this time. Initial Sepsis Screen: Does the patient meet any 2 criteria? No. Patient's initial sepsis screen is negative. Does the patient have a suspected source of infection? No. Patient's initial sepsis screen is negative. Risk Assessment: Do you want to hurt yourself or someone else? Patient reports no desire to harm self or others. Onset of symptoms was June 27, 2024. 21:09 Acuity: YASMINE 3 mb9 21:09 Method Of Arrival: Ambulatory mb9 Triage Assessment: 21:11 General: Appears uncomfortable, ill, Behavior is cooperative. Pain: Complains of pain mb9 in abdomen. Respiratory: Airway is patent Respiratory effort is even, unlabored, Respiratory pattern is regular, symmetrical. GI: Abdomen is round non-distended, Reports lower abdominal pain, upper abdominal pain, nausea. : No signs and/or symptoms were reported regarding the genitourinary system. HOBBER: 21:10 LMP 06/16/2024, unknown mb9 Historical: - Allergies: 21:10 No Known Allergies; mb9 - Home Meds: 21:10 None [Active]; mb9 - PMHx: 21:10 BRAIN TUMOR; [employer]T; mb9 - PSHx: 21:10 None; mb9 - Immunization history:: Adult Immunizations up to date. - Infectious Disease History:: Denies. - Social history:: Smoking status: Patient denies any tobacco usage or history of. - Family history:: not pertinent. Screenin:30 [facility] ED Fall Risk Assessment (Adult) History of falling in the last 3 months, rg5 including since admission No falls in past 3 months (0 pts) Confusion or Disorientation No (0 pts) Intoxicated or Sedated No (0 pts) Impaired Gait No (0 pts) Mobility Assist Device Used No (0 pt) Altered Elimination No (0 pt) Score/Fall Risk Level 0 - 2 = Low Risk Oriented to surroundings, Maintained a safe environment, Hourly rounding (assess needs \\T\\ fall precautionary measures) done. Abuse screen: Denies threats or abuse. Nutritional screening: No deficits noted. Tuberculosis screening: No symptoms or risk factors identified. Assessment: 21:30 General: Appears comfortable, Behavior is calm, cooperative, appropriate for age. rg5 21:30 Pain: Complains of pain in abdomen Pain does not radiate. Pain currently is 4 out of 10 rg5 on a pain scale. Quality of pain is described as aching, Pain began 3 hours ago. Neuro: Level of Consciousness is awake, alert, obeys commands, Oriented to person, place, time, situation. Cardiovascular: Denies chest pain, Heart tones S1 S2 Capillary refill < 3 seconds Patient's skin is warm and dry. Respiratory: Airway is patent Trachea midline Respiratory effort is even, unlabored, Respiratory pattern is regular, symmetrical. GI: Bowel sounds present in left lower quadrant Abd is soft Abd is non tender Reports upper abdominal pain. : No signs and/or symptoms were reported regarding the genitourinary system. EENT: No deficits noted. Derm: Skin is intact, Skin is dry, Skin is normal, Skin temperature is warm. Musculoskeletal: Range of motion: intact in all extremities. 22:30 Reassessment: No changes from previously documented assessment. Patient and/or family rg5 updated on plan of care and expected duration. Pain level reassessed. Patient is alert, oriented x 3, equal unlabored respirations, skin warm/dry/pink. 23:35 Reassessment: Patient and/or family updated on plan of care and expected duration. Pain rg5 level reassessed. Patient is alert, oriented x 3, equal unlabored respirations, skin warm/dry/pink. 06/28 00:32 Reassessment: Patient and/or family updated on plan of care and expected duration. Pain rg5 level reassessed. Patient is alert, oriented x 3, equal unlabored respirations, skin warm/dry/pink. Patient states feeling better. Patient states symptoms have improved. Vital Signs: 06/27 21:09 BP 134 / 76; Pulse 74; Resp 18; Temp 98.4(O); Pulse Ox 100% ; Weight 122.47 kg; Height mb9 5 ft. 9 in. ; Pain 4/10; 21:30 BP 127 / 69; Pulse 78; Resp 17; Pulse Ox 100% on R/A; Pain 4/10; rg5 23:30 BP 123 / 70; Pulse 77; Resp 17; Temp 98; Pulse Ox 100% on R/A; Pain 0/10; rg5 06/28 00:30 BP 126 / 77; Pulse 77; Resp 17; Temp 98; Pulse Ox 99% on R/A; rg5 00:51 BP 109 / 69; Pulse 77; Resp 17; Temp 98; Pulse Ox 99% on R/A; rg5 06/27 21:09 Body Mass Index 39.87 (122.47 kg, 175.26 cm) mb9 06/27 21:09 Pain Scale: Adult mb9 21:30 Pain Scale: Adult rg5 23:30 Pain Scale: Adult rg5 [place] Coma Score: 06/27 21:30 Eye Response: spontaneous(4). Motor Response: obeys commands(6). Verbal Response: rg5 oriented(5). Total: 15. 06/28 04:11 Eye Response: spontaneous(4). Motor Response: obeys commands(6). Verbal Response: sp4 oriented(5). Total: 15. ED Course: 06/27 20:57 Patient arrived in ED. ld1 21:00 Vincent Sharpe MD is Attending Physician. sp4 21:10 Triage completed. mb9 21:10 Arm band placed on. mb9 21:15 Morales Wilson, ALEC is Primary Nurse. rg5 21:27 CBC with Diff Sent. vk 21:27 CMP Sent. vk 21:27 Lipase Sent. vk 21:27 Lab(s) recollected, by me, sent to lab. Inserted saline lock: 22 gauge in right vk antecubital area, using aseptic technique. Blood collected. Flushed with 10 mL NS. 21:[address] Scan. rg5 21:30 Allergy band placed. Bed in low position. Call light in reach. Side rails up X 1. Adult rg5 w/ patient. 21:30 No provider procedures requiring assistance completed. rg5 21:55 Test, Serum Sent. vk 22:11 US Abdomen Limited In Process Unspecified. EDMS 22:31 CT Abd/Pelvis - IV Contrast Only In Process Unspecified. EDMS 06/28 00:54 Provided Education on: POST ER CARE. rg5 00:54 IV discontinued, bleeding controlled, No redness/swelling at site. Pressure dressing rg5 applied. Administered Medications: 00:55 Discontinued: ns 0.9% 1000 ml IV at 125 ml/hr continuous rg5 06/27 21:30 Drug: NS 0.9% IV 1000 ml IV at 1 bolus Per protocol; 1000 mL bolus Route: IV; Rate: 1 rg5 bolus; Site: right antecubital; 06/28 00:33 Follow up: IV Status: Completed infusion; IV Intake: 1000ml rg5 06/27 21:52 Drug: Ketorolac IVP 30 mg IVP once Route: IVP; Site: right antecubital; rg5 06/28 00:29 Follow up: Response: No adverse reaction; Pain is decreased rg5 06/27 21:52 Drug: morphine IVP or IV 4 mg IVP once over 4 mins Route: IVP; Infused Over: 4 mins; rg5 Site: right antecubital; 06/28 00:30 Follow up: Response: No adverse reaction; Pain is decreased rg5 06/27 21:52 Drug: Famotidine IVP 20 mg IVP once; dilute with 10 mL 0.9% NaCl; give over 2 minutes rg5 Route: IVP; Site: right antecubital; 06/28 00:30 Follow up: Response: No adverse reaction rg5 06/27 21:52 Drug: NS 0.9% IV 1000 ml IV at 1 bolus Per protocol; 1000 mL bolus Route: IV; Rate: 1 rg5 bolus; Site: right antecubital; 06/28 00:29 Follow up: Response: No adverse reaction; IV Status: Completed infusion rg5 00:13 Drug: NS 0.9% IV 1000 ml IV at 125 ml/hr continuous Route: IV; Rate: 125 ml/hr; Site: rg5 right antecubital; 00:56 Follow up: IV Status: Order to discontinue infusion; IV Intake: 100ml rg5 00:15 Drug: morphine IVP or IV 4 mg IVP once over 4 mins Route: IVP; Infused Over: 4 mins; rg5 Site: right antecubital; 00:55 Follow up: Response: No adverse reaction; Pain is decreased rg5 00:15 Drug: metoCLOPramide IVP 10 mg IVP once; over 1 to 2 minutes Route: IVP; Site: right rg5 antecubital; 00:54 Follow up: Response: No adverse reaction rg5 00:15 Drug: Dicyclomine IM 20 mg IM once Route: IM; Site: right deltoid; rg5 00:54 Follow up: Response: No adverse reaction rg5 Medication: 06/27 21:30 VIS not applicable for this client. rg5 Intake: 06/28 00:33 IV: 1000ml; Total: 1000ml. rg5 00:56 IV: 100ml; Total: 1100ml. rg5 Outcome: 00:54 Discharge ordered by . sp4 01:05 Discharged to home ambulatory, rg5 01:05 Condition: good 01:05 Discharge instructions given to patient, family, Instructed on discharge instructions, follow up and referral plans. Demonstrated understanding of instructions, follow-up care, medications, Prescriptions given X 3, 01:06 Patient left the ED. rg5 Signatures: Dispatcher [employer] EDMS Carito Norton RN RN ld1 Vanessa Vaughan RN RN mb9 Vincent Sharpe MD MD sp4 Kruse, Vivian vk Gallardo, Rommel, ALEC RN rg5 Corrections: (The following items were deleted from the chart) 06/27 22:04 21:39 Morales Wilson RN is Primary Nurse. rg5 rg5
[2024-06-28 01:40] VITALS: TEMP 98
[2024-06-28 01:41] VITALS: O2SAT 99
[2024-06-28 01:42] VITALS: BP 109/69
== END 2024-06-28 01:06 | disposition home or self-care (01) ==
LOC: ER 20:55
DX: R10.84 Generalized abdominal pain (principal); R11.0 Nausea; Z98.2 Presence of cerebrospinal fluid drainage device
CPT/HCPCS: 96361; 85025; 81001; 36415; 84703; 83690; 80053; 74177; 76705; 96375; 96372; 96374; 99284; Q9967; J2765; J0500; J7030